=== PATIENT | female | born 1935 | race American Indian/Alaskan Native ===

== ENCOUNTER 2017-12-17 20:38 | Inpatient (IN) | payer MEDICARE ==
--- NOTE | 2017-12-17 20:50 | C.PDOC ---
History Of Present Illness Patient sent in from long term for abnormal labs. Unable to obtain Hx due to dementia. Time Seen by Provider: 12/17/17 20:50 Chief Complaint (Nursing): Abnormal Labs History Per: Other (long term) History/Exam Limitations: clinical condition Onset/Duration Of Symptoms: Hrs Current Symptoms Are (Timing): Still Present Severity: Moderate Pain Scale Rating Of: 4 Reports Recently: Seen In ED, Treated By A Physician, Hospitalized Recent travel outside of the [place]: No Additional History Per: [facility] Past Medical History Reviewed: Historical Data, Nursing Documentation, Vital Signs Vital Signs: Last Vital Signs Temp Pulse 104 H 12/17/17 22:28 Resp 18 12/17/17 22:28 BP 94/55 L 12/17/17 22:28 Pulse Ox 100 12/17/17 22:31 - Medical History PMH: Alzheimer's Disease, HTN, Hyperlipidemia Surgical History: No Surg Hx Family History: States: No Known Family Hx - Social History Hx Alcohol Use: No Hx Substance Use: No Review Of Systems Review Of Systems: ROS cannot be obtained secondary to pt's inabilty to answer questions. Physical Exam - Physical Exam Appears: Non-toxic Skin: Warm, Dry Head: Normacephalic Eye(s): bilateral: Normal Inspection Oral Mucosa: Dry Lips: Other (dry) Neck: Trachea Midline, Supple Chest: Symmetrical, No Tenderness Cardiovascular: Rhythm Regular Respiratory: No Rales, No Rhonchi, No Wheezing Gastrointestinal/Abdominal: Bowel Sounds (Good), Soft, No Tenderness, No Distention Back: Normal Inspection Extremity: No Tenderness, Other (Slightly contracted but able to straighten at times) Extremity: Bilateral: Atraumatic, Normal Color And Temperature Pulses: Left Dorsalis Pedis: Normal, Right Dorsalis Pedis: Normal Neurological/Psych: Other (Demented) Disoriented To: Place, Time, Situation Gait: Unable To Assess ED Course And Treatment - Laboratory Results Result Diagrams: 12/17/17 21:37 12/17/17 21:37 ECG: Interpreted By Me, Viewed By Me O2 Sat by Pulse Oximetry: 100 (Room air) Pulse Ox Interpretation: Normal - Radiology CXR: Interpreted by Me, Viewed By Me CXR Interpretation: No: Infiltrates, Fracture, Pnemothorax Progress Note: Blood work, EKG, CXR, and urinalysis ordered. IV fluids administered. Right femoral vein venipuncture performed in order to obtain blood. Critical Care Time - Critical Care Note Total Time (in mins): 30 Documented critical care: time excludes all time spent performing seperately billable procedures. Disposition Discussed With : Yusef Levy Comment: acceptd the pt on his service and took over the care at 11PM Doctor Will See Patient In The: Hospital Counseled Patient/Family Regarding: Studies Performed, Diagnosis - Disposition Disposition: HOSPITALIZED Disposition Time: 20:50 Condition: GUARDED Forms: [facility] ([place]ian) - POA Present On Arrival: Poor Glycemic Control - Clinical Impression Clinical Impression: Laboratory test result abnormal, Hyperkalemia, Hypernatremia, Renal failure - Scribe Statement The provider has reviewed the documentation as recorded by the Scribe Jacinto Rutledge All medical record entries made by the Scribe were at my direction and personally dictated by me. I have reviewed the chart and agree that the record accurately reflects my personal performance of the history, physical exam, medical decision making, and the department course for this patient. I have also personally directed, reviewed, and agree with the discharge instructions and disposition. Decision To Admit - Pt Status Changed To: Hospital Disposition Of: Inpatient - Admit Certification Admit to Inpatient:: After my assessment, the patient will require hospitalization for at least two midnights. This is because of the severity of symptoms shown, intensity of services needed, and/or the medical risk in this patient being treated as an outpatient. - InPatient: Physician Admission Certification: I certify that this patient requires 2 or more midnights of care for the following reason:: After my assessment, the patient will require hospitalization for at least two midnights. This is because of the severity of symptoms shown, intensity of services needed, and/or the medical risk in this patient being treated as an outpatient. - . Bed Request Type: Telemetry Admitting Physician: Yusef Levy Patient Diagnosis: Laboratory test result abnormal, Hyperkalemia, Hypernatremia, Renal failure
[2017-12-17 21:44] LABS: MONO # 0.7 K/uL (0.0-0.8); RBC 3.64 Mil/uL (3.80-5.20); RED CELL DISTRIBUTION WIDTH 15.5 % (11.5-14.5)
[2017-12-17 21:51] LABS: BASO % 0.2 % (0.0-2.0); EOS # 0.2 K/uL (0.0-0.7); EOS % 1.5 % (0.0-4.0); LYMPH % 18.1 % (20.0-40.0); MEAN CELL VOLUME 86.9 fL (81.0-99.0); MEAN CORPUSCULAR HEMOGLOBIN 27.4 pg (27.0-31.0); MEAN CORPUSCULAR HGB CONC 31.5 g/dL (33.0-37.0); MEAN PLATELET VOLUME 11.4 fL (7.2-11.7); MONO % 6.1 % (0.0-10.0); NEUT # 8.3 K/uL (1.8-7.0); NEUT % 74.1 % (50.0-75.0); WHITE BLOOD COUNT 11.2 K/uL (4.8-10.8)
[2017-12-17 21:54] LABS: VENOUS BLOOD GAS BASE EXCESS -4.2 mmol/L (0.0-2.0); VENOUS BLOOD GAS PCO2 34 mmHg (40-60); VENOUS BLOOD GAS PO2 35 mm/Hg (30-55); VENOUS BLOOD PH 7.38 (7.32-7.43)
[2017-12-17 21:55] LABS: PROTHROMBIN TIME 11.3 SECONDS (9.7-12.2)
[2017-12-17] MEDS: Sodium Chloride 0.9% 1,000 ML IV SCH (22:00)
[2017-12-17 22:07] LABS: TROPONIN I 0.028 ng/mL (0.00-0.120)
[2017-12-17 22:49] LABS: ALBUMIN 3.5 g/dL (3.5-5.0)
[2017-12-17] MEDS ORDERED: Calcium Gluconate 4.65 MEQ in Dextrose 5% In Water 100 ML IVPB STA (22:53)
[2017-12-17] MEDS ORDERED: Dextrose 50% SYRINGE Inj (50 ml) IV STA (22:54)
[2017-12-17] MEDS ORDERED: (Novolin R) Insulin Human Regular 100 units/ml vial IV ONE (22:54)
[2017-12-17] MEDS ORDERED: Sod Polystyrene Sulf 15 gm/60 ml Susp ONE (23:16)
[2017-12-17] MEDS ORDERED: (Novolin R) Insulin Human Regular 100 units/ml vial ONE (23:17)
[2017-12-17] MEDS ORDERED: Dextrose 50% SYRINGE Inj (50 ml) ONE (23:17)
[2017-12-17] MEDS: Sod Polystyrene Sulf 15 gm/60 ml Susp PO ONE (23:37)
[2017-12-18] MEDS ORDERED: Sod Polystyrene Sulf 15 gm/60 ml Susp PR ONE (00:09)
[2017-12-18] MEDS: Sod Polystyrene Sulf 15 gm/60 ml Susp PO ONE (00:29)
[2017-12-18 02:39] LABS: SQUAMOUS EPITHIAL 1 /hpf (0-5); URINE BILIRUBIN NEGATIVE (NEGATIVE); URINE BLOOD NEGATIVE (NEGATIVE); URINE CLARITY Clear (Clear); URINE COLOR Yellow (YELLOW); URINE GLUCOSE (UA) NORMAL (Normal); URINE LEUKOCYTE ESTERASE NEG Leu/uL (Negative); URINE PROTEIN NEGATIVE (NEGATIVE)
[2017-12-18] MEDS ORDERED: MECLIZINE 12.5 MG PO PRN (02:49)
[2017-12-18] MEDS ORDERED: IBUPROFEN 400 MG PO PRN (02:49)
[2017-12-18] MEDS ORDERED: BISACODYL 10 MG PR PRN (02:49)
[2017-12-18] MEDS ORDERED: TYLENOL 650 MG PO PRN ×2 (02:49)
[2017-12-18] MEDS ORDERED: ATIVAN 1 MG PO PRN (02:49)
[2017-12-18] MEDS ORDERED: TRAMADOL 50 MG PO PRN ×2 (02:49→08:13)
[2017-12-18] MEDS ORDERED: MELATONIN 10 MG PO PRN ×2 (02:49→08:03)
[2017-12-18 04:14] LABS: BASO % 0.4 % (0.0-2.0); EOS # 0.1 K/uL (0.0-0.7); EOS % 0.9 % (0.0-4.0); LYMPH # 1.2 K/uL (1.0-4.3); LYMPH % 12.8 % (20.0-40.0); MEAN CELL VOLUME 88.7 fL (81.0-99.0); MEAN CORPUSCULAR HEMOGLOBIN 27.8 pg (27.0-31.0); MEAN CORPUSCULAR HGB CONC 31.4 g/dL (33.0-37.0); MEAN PLATELET VOLUME 12.3 fL (7.2-11.7); MONO # 0.6 K/uL (0.0-0.8); MONO % 6.4 % (0.0-10.0); NEUT # 7.4 K/uL (1.8-7.0); NEUT % 79.5 % (50.0-75.0); NRBC % 0.1 % (0.0-2.0); RBC 3.6 Mil/uL (3.80-5.20); RED CELL DISTRIBUTION WIDTH 15.4 % (11.5-14.5); WHITE BLOOD COUNT 9.3 K/uL (4.8-10.8)
[2017-12-18 04:40] LABS: ALB/GLOB RATIO 1.1 (1.0-2.1); ALBUMIN 3.4 g/dL (3.5-5.0)
[2017-12-18] MEDS ORDERED: Sodium Chloride 0.9% 1,000 ML IV ONE ×4 (05:37→09:35)
[2017-12-18 06:08] LABS: VENOUS BLOOD GAS BASE EXCESS -8.6 mmol/L (0.0-2.0); VENOUS BLOOD GAS PCO2 26 mmHg (40-60); VENOUS BLOOD GAS PO2 44 mm/Hg (30-55); VENOUS BLOOD PH 7.37 (7.32-7.43)
--- NOTE | 2017-12-18 06:47 | CP.PCM.PN ---
<Jeanie Beltran - Last Filed: 12/18/17 06:42> Subjective - Date & Time of Evaluation Date of Evaluation: 12/18/17 Time of Evaluation: 05:45 - Subjective Subjective: Patient found to be hypotensive. Crockett inserted. External jugular line inserted. NS bolus started. Cortisol was ordered. Zosyn 2.25g IV Q8h started empirically. ICU consulted. Patient accepted and will be transferred to ICU for continued management. Objective - Vital Signs/Intake and Output Vital Signs (last 24 hours): Temp Pulse Resp BP Pulse Ox 96.3 F L 103 H 20 101/44 L 98 12/18/17 06:37 12/18/17 06:33 12/18/17 06:33 12/18/17 06:33 12/18/17 06:33 - Medications Medications: Current Medications Enoxaparin Sodium (Lovenox) 40 mg SC DAILY [facility] Home Med (Ativan) 1 mg PO Q12H PRN PRN Reason: Agitation Home Med (Bisacodyl) 10 mg SD Q3D PRN PRN Reason: Constipation Home Med (Citracal Soft Chew) 2 tab PO BID [facility] Home Med (Culturelle) 1 cap PO DAILY [facility] Home Med (Depakote Dr) 250 mg PO BID [facility] Home Med (Docusate Sodium) 200 mg PO DAILY [facility] Home Med (Famotidine) 40 mg PO DAILY [facility] Home Med (Flonase) 2 puff INH DAILY [facility] Home Med (Mag Glycinate) 250 mg PO BID [facility] Home Med (Meclizine) 12.5 mg PO Q12H PRN PRN Reason: Dizziness Home Med (Melatonin) 10 mg PO HS PRN PRN Reason: Insomnia Home Med (Milk Of Magnesia) 30 ml PO Q2D PRN PRN Reason: Constipation Home Med (Multi-Vitamin Daily) 1 tab PO DAILY [facility] Home Med (Tramadol) 50 mg PO Q8H PRN PRN Reason: Pain, severe (8-10) Home Med (Tylenol) 650 mg PO Q4H PRN PRN Reason: Temperature Home Med (Tylenol) 650 mg PO Q4H PRN PRN Reason: Pain, Mild (1-3) Home Med (Uloric) 40 mg PO DAILY [facility] Sodium Chloride (Sodium Chloride 0.9%) 1,000 mls @ 100 mls/hr IV .Q10H [facility] Last Admin: 12/17/17 22:00 Dose: 100 mls/hr Dextrose (Dextrose 5% In Water 1000 Ml) 1,000 mls @ 100 mls/hr IV .Q10H [facility] Last Admin: 12/18/17 01:45 Dose: 100 mls/hr Cefepime HCl 1 gm/ Dextrose 50 mls @ 100 mls/hr IVPB Q12H [facility] PRN Reason: Protocol Pantoprazole Sodium (Protonix Ec Tab) 40 mg PO DAILY [facility] - Labs Labs: 12/18/17 04:08 12/18/17 04:08 PT 11.3 SECONDS (9.7-12.2) 12/17/17 21:37 INR 1.0 12/17/17 21:37 APTT 27 SECONDS (21-34) 12/17/17 21:37 <Slim Singletary P - Last Filed: 12/18/17 08:24> Objective - Vital Signs/Intake and Output Vital Signs (last 24 hours): Temp Pulse Resp BP Pulse Ox 96.3 F L 103 H 20 101/44 L 95 12/18/17 06:37 12/18/17 06:33 12/18/17 06:33 12/18/17 06:33 12/18/17 07:35 - Medications Medications: Current Medications Acetaminophen (Tylenol 325mg Tab) 650 mg PO Q4H PRN PRN Reason: Temperature Acetaminophen (Tylenol 325mg Tab) 650 mg PO Q4H PRN PRN Reason: Pain, Mild (1-3) Bisacodyl (Dulcolax) 10 mg SD Q3D PRN PRN Reason: Constipation Divalproex Sodium (Depakote Dr) 250 mg PO BID [facility] Docusate Sodium (Colace) 200 mg PO DAILY [facility] Enoxaparin Sodium (Lovenox) 40 mg SC DAILY [facility] Fluticasone Propionate (Flonase) 2 spr BEL DAILY [facility] Home Med (Mag Glycinate) 250 mg PO BID [facility] Home Med (Citracal Soft Chew) 2 tab PO BID [facility] Home Med (Culturelle) 1 cap PO DAILY [facility] Home Med (Famotidine) 40 mg PO DAILY [facility] Home Med (Melatonin) 10 mg PO HS PRN PRN Reason: Insomnia Home Med (Tramadol) 50 mg PO Q8H PRN PRN Reason: Pain, severe (8-10) Home Med (Uloric) 40 mg PO DAILY [facility] Sodium Chloride (Sodium Chloride 0.9%) 1,000 mls @ 100 mls/hr IV .Q10H [facility] Last Admin: 12/17/17 22:00 Dose: 100 mls/hr Dextrose (Dextrose 5% In Water 1000 Ml) 1,000 mls @ 100 mls/hr IV .Q10H [facility] Last Admin: 12/18/17 01:45 Dose: 100 mls/hr Cefepime HCl 1 gm/ Dextrose 50 mls @ 100 mls/hr IVPB Q12H [facility] PRN Reason: Protocol Piperacillin Sod/Tazobactam (Sod 2.25 gm/ Sodium Chloride) 100 mls @ 200 mls/ hr IVPB Q8H [facility] PRN Reason: Protocol Lorazepam (Ativan) 1 mg PO Q12H PRN PRN Reason: Agitation Magnesium Hydroxide (Milk Of Magnesia) 30 ml PO Q2D PRN PRN Reason: Constipation Meclizine HCl (Antivert) 12.5 mg PO Q12H PRN PRN Reason: Dizziness Multivitamins (Hexavitamin) 1 tab PO DAILY [facility] Pantoprazole Sodium (Protonix Ec Tab) 40 mg PO DAILY [facility] - Labs Labs: 12/18/17 04:08 12/18/17 04:08 PT 11.3 SECONDS (9.7-12.2) 12/17/17 21:37 INR 1.0 12/17/17 21:37 APTT 27 SECONDS (21-34) 12/17/17 21:37 Attending/Attestation - Attestation I have personally seen and examined this patient.: Yes I have fully participated in the care of the patient.: Yes I have reviewed all pertinent clinical information, including history, physical exam and plan: Yes Notes (Text): 12/18/17 08:22 Very severely dehydrated in early shock, PREMA, IV 2 boluses started, 18g angiocath inserted in left EJ, single attempt, lactate cortisol levels sent, crockett inserted, no urine out put. ICU consulted patient accepted to ICU. Empiric Zosyn started considering sepsis as dd of this presentation.
[2017-12-18] MEDS ORDERED: Piperacillin/Tazobact 2.25 GM in Sodium Chloride 100 ML IVPB SCH ×2 (07:00→09:30)
[2017-12-18] MEDS ORDERED: Magnesium Hydroxide Susp 30 ml UD PO PRN (08:21)
--- NOTE | 2017-12-18 08:58 | CP.PCM.CON ---
<Lashell Camara - Last Filed: 12/18/17 11:49> History of Present Illness - History of Present Illness History of Present Illness: Critical Care Consult 82 year old female with past medical history of HTN, CKD, Alzheimer's dementia presented to hospital from [facility] for severe dehydration and abnormal lab values. On admission, pt's Na was noted to be 166. Patient was receiving IV fluids but she continued to be hypotensive. ICU consult was requested at this time and pt was transferred to ICU. Currently, pt is lethargic but able to follow simple commands and awakens to verbal and painful stimuli. Pt unable to give history or ROS due to mental status. History is obtained from patient's daughter, Tameka Arriaza. PMHx: stated above Sx: none NKDA Social; former smoker, quite many years ago. Occasional ETOH use. No drug use Review of Systems - Review of Systems Systems not reviewed;Unavailable: Dementia, Altered Mental Status Past Patient History - Past Social History Smoking Status: Former Smoker Chewing Tobacco Use: No Cigar Use: No Alcohol: Occasional Home Situation {Lives}: Fpc - CARDIAC Hx Hypertension: Yes - NEUROLOGICAL Hx Alzheimer's Disease: Yes - MUSCULOSKELETAL/RHEUMATOLOGICAL Hx Falls: No (Unable to obtain information from patient) - PSYCHIATRIC Hx Substance Use: No Meds Allergies/Adverse Reactions: Allergies Allergy/AdvReac Type Severity Reaction Status Date / Time No Known Allergies Allergy Verified 12/17/17 20:52 - Medications Medications: Current Medications Acetaminophen (Tylenol 325mg Tab) 650 mg PO Q4H PRN PRN Reason: Temperature Acetaminophen (Tylenol 325mg Tab) 650 mg PO Q4H PRN PRN Reason: Pain, Mild (1-3) Bisacodyl (Dulcolax) 10 mg AK Q3D PRN PRN Reason: Constipation Divalproex Sodium (Depakote Dr) 250 mg PO BID [facility] Docusate Sodium (Colace) 200 mg PO DAILY [facility] Enoxaparin Sodium (Lovenox) 40 mg SC DAILY [facility] Fluticasone Propionate (Flonase) 2 spr BEL DAILY [facility] Home Med (Mag Glycinate) 250 mg PO BID [facility] Home Med (Citracal Soft Chew) 2 tab PO BID [facility] Home Med (Culturelle) 1 cap PO DAILY [facility] Home Med (Famotidine) 40 mg PO DAILY [facility] Home Med (Melatonin) 10 mg PO HS PRN PRN Reason: Insomnia Home Med (Tramadol) 50 mg PO Q8H PRN PRN Reason: Pain, severe (8-10) Home Med (Uloric) 40 mg PO DAILY [facility] Sodium Chloride (Sodium Chloride 0.9%) 1,000 mls @ 100 mls/hr IV .Q10H [facility] Last Admin: 12/17/17 22:00 Dose: 100 mls/hr Dextrose (Dextrose 5% In Water 1000 Ml) 1,000 mls @ 100 mls/hr IV .Q10H [facility] Last Admin: 12/18/17 01:45 Dose: 100 mls/hr Piperacillin Sod/Tazobactam (Sod 2.25 gm/ Sodium Chloride) 100 mls @ 200 mls/ hr IVPB Q8H [facility] PRN Reason: Protocol Sodium Chloride (Sodium Chloride 0.9%) 1,000 mls @ 1,000 mls/hr IV .Q1H ONE Stop: 12/18/17 09:20 Lorazepam (Ativan) 1 mg PO Q12H PRN PRN Reason: Agitation Magnesium Hydroxide (Milk Of Magnesia) 30 ml PO Q2D PRN PRN Reason: Constipation Meclizine HCl (Antivert) 12.5 mg PO Q12H PRN PRN Reason: Dizziness Multivitamins (Hexavitamin) 1 tab PO DAILY [facility] Pantoprazole Sodium (Protonix Ec Tab) 40 mg PO DAILY [facility] Physical Exam - Constitutional Appears: No Acute Distress - Head Exam Head Exam: ATRAUMATIC, NORMOCEPHALIC - Eye Exam Eye Exam: EOMI - ENT Exam ENT Exam: Mucous Membranes Moist - Respiratory Exam Respiratory Exam: Clear to Auscultation Bilateral, NORMAL BREATHING PATTERN. absent: Accessory Muscle Use, Rales, Rhonchi, Wheezes - Cardiovascular Exam Cardiovascular Exam: REGULAR RHYTHM, +S1, +S2. absent: Diastolic murmur, Systolic Murmur - GI/Abdominal Exam GI & Abdominal Exam: Normal Bowel Sounds, Soft. absent: Distended, Firm, Guarding - Extremities Exam Extremities exam: Negative for: pedal edema, tenderness - Neurological Exam Neurological exam: Altered - Psychiatric Exam Psychiatric exam: Normal Affect, Normal Mood - Skin Skin Exam: Dry, Intact, Normal Color, Warm Results - Vital Signs Recent Vital Signs: Last Vital Signs Temp 96.3 F L 07/11/18 06:37 Pulse 98 H 12/18/17 08:08 Resp 12 12/18/17 08:08 BP 92/41 L 12/18/17 08:08 Pulse Ox 100 12/18/17 08:08 - Labs Result Diagrams: 12/18/17 04:08 12/18/17 04:08 Labs: Laboratory Results - last 24 hr 12/17/17 12/17/17 12/17/17 21:37 21:37 21:37 WBC 11.2 H RBC 3.64 L Hgb 10.0 L Hct 31.7 L MCV 86.9 MCH 27.4 MCHC 31.5 L RDW 15.5 H Plt Count 104 L MPV 11.4 Neut % (Auto) 74.1 Lymph % (Auto) 18.1 L Tillman % (Auto) 6.1 Eos % (Auto) 1.5 Baso % (Auto) 0.2 Neut # (Auto) 8.3 H Lymph # (Auto) 2.0 Tillman # (Auto) 0.7 Eos # (Auto) 0.2 Baso # (Auto) 0.0 Differential Comment PT 11.3 INR 1.0 APTT 27 pO2 VBG pH VBG pCO2 VBG HCO3 VBG Total CO2 VBG O2 Sat (Calc) VBG Base Excess VBG Potassium Glucose Lactate FiO2 Blood Gas Comments Crit Value Called To Crit Value Called By Crit Value Read Back Blood Gas Notified Time Sodium 166 H* Potassium 6.2 H* Chloride 129 H Carbon Dioxide 21 L Anion Gap 22 H BUN 171 H* Creatinine 10.5 H* Est GFR ( Amer) 4 Est GFR (Non-Af Amer) 4 Random Glucose 100 Serum Osmolality Calcium 10.0 Magnesium 5.1 H* Total Bilirubin 0.6 AST 25 ALT 30 Alkaline Phosphatase 84 Troponin I 0.0280 Total Protein 7.0 Albumin 3.5 Globulin 3.5 Albumin/Globulin Ratio 1.0 Lipase 135 Cortisol AM Sample Venous Blood Potassium Urine Color Urine Clarity Urine pH Ur Specific [place] Urine Protein Urine Glucose (UA) Urine Ketones Urine Blood Urine Nitrate Urine Bilirubin Urine Urobilinogen Ur Leukocyte Esterase Urine WBC (Auto) Urine RBC (Auto) Ur Squamous Epith Cells Urine Osmolality 12/17/17 12/18/17 12/18/17 21:45 02:21 02:21 WBC RBC Hgb Hct MCV MCH MCHC RDW Plt Count MPV Neut % (Auto) Lymph % (Auto) Tillman % (Auto) Eos % (Auto) Baso % (Auto) Neut # (Auto) Lymph # (Auto) Tillman # (Auto) Eos # (Auto) Baso # (Auto) Differential Comment PT INR APTT pO2 35 VBG pH 7.38 VBG pCO2 34 L VBG HCO3 20.8 VBG Total CO2 21.1 L VBG O2 Sat (Calc) 76.1 H VBG Base Excess -4.2 L VBG Potassium 6.1 H Glucose 94 Lactate 1.3 FiO2 21.0 Blood Gas Comments Crit Value Called To Dr shay Crit Value Called By [facility] Crit Value Read Back Y Blood Gas Notified Time 2153 Sodium 161.0 H* Potassium Chloride 133.0 H Carbon Dioxide Anion Gap BUN Creatinine Est GFR ( Amer) Est GFR (Non-Af Amer) Random Glucose Serum Osmolality Calcium Magnesium Total Bilirubin AST ALT Alkaline Phosphatase Troponin I Total Protein Albumin Globulin Albumin/Globulin Ratio Lipase Cortisol AM Sample Venous Blood Potassium 6.1 H Urine Color Yellow Urine Clarity Clear Urine pH 5.0 Ur Specific [place] 1.017 Urine Protein Negative Urine Glucose (UA) Normal Urine Ketones Negative Urine Blood Negative Urine Nitrate Negative Urine Bilirubin Negative Urine Urobilinogen 2.0 H Ur Leukocyte Esterase Neg Urine WBC (Auto) 2 Urine RBC (Auto) < 1 Ur Squamous Epith Cells 1 Urine Osmolality 436 12/18/17 12/18/17 12/18/17 04:08 04:08 04:08 WBC 9.3 RBC 3.60 L Hgb 10.0 L Hct 31.9 L MCV 88.7 MCH 27.8 MCHC 31.4 L RDW 15.4 H Plt Count 88 L MPV 12.3 H Neut % (Auto) 79.5 H Lymph % (Auto) 12.8 L Tillman % (Auto) 6.4 Eos % (Auto) 0.9 Baso % (Auto) 0.4 Neut # (Auto) 7.4 H Lymph # (Auto) 1.2 Tillman # (Auto) 0.6 Eos # (Auto) 0.1 Baso # (Auto) 0.0 Differential Comment PT INR APTT pO2 VBG pH VBG pCO2 VBG HCO3 VBG Total CO2 VBG O2 Sat (Calc) VBG Base Excess VBG Potassium Glucose Lactate FiO2 Blood Gas Comments Crit Value Called To Crit Value Called By Crit Value Read Back Blood Gas Notified Time Sodium 166 H* Potassium 5.6 H Chloride 129 H Carbon Dioxide 18 L Anion Gap 24 H BUN 168 H* Creatinine 10.5 H* Est GFR ( Amer) 4 Est GFR (Non-Af Amer) 4 Random Glucose 143 H Serum Osmolality 403 H Calcium 10.0 Magnesium Total Bilirubin 0.6 AST 22 ALT 28 Alkaline Phosphatase 76 Troponin I Total Protein 6.4 Albumin 3.4 L Globulin 3.0 Albumin/Globulin Ratio 1.1 Lipase Cortisol AM Sample Venous Blood Potassium Urine Color Urine Clarity Urine pH Ur Specific [place] Urine Protein Urine Glucose (UA) Urine Ketones Urine Blood Urine Nitrate Urine Bilirubin Urine Urobilinogen Ur Leukocyte Esterase Urine WBC (Auto) Urine RBC (Auto) Ur Squamous Epith Cells Urine Osmolality 12/18/17 12/18/17 05:44 05:55 WBC RBC Hgb Hct MCV MCH MCHC RDW Plt Count MPV Neut % (Auto) Lymph % (Auto) Tillman % (Auto) Eos % (Auto) Baso % (Auto) Neut # (Auto) Lymph # (Auto) Tillman # (Auto) Eos # (Auto) Baso # (Auto) Differential Comment PT INR APTT pO2 44 VBG pH 7.37 VBG pCO2 26 L VBG HCO3 17.7 VBG Total CO2 15.8 L VBG O2 Sat (Calc) 86.6 H VBG Base Excess -8.6 L VBG Potassium 3.9 Glucose 88 Lactate 1.2 FiO2 Blood Gas Comments Sodium levels are high Crit Value Called To [place] process engineering intern Crit Value Called By Danny ann Crit Value Read Back Y Blood Gas Notified Time 607 Sodium 162.0 H* Potassium Chloride 135.0 H Carbon Dioxide Anion Gap BUN Creatinine Est GFR ( Amer) Est GFR (Non-Af Amer) Random Glucose Serum Osmolality Calcium Magnesium Total Bilirubin AST ALT Alkaline Phosphatase Troponin I Total Protein Albumin Globulin Albumin/Globulin Ratio Lipase Cortisol AM Sample 29.1 H Venous Blood Potassium 3.9 Urine Color Urine Clarity Urine pH Ur Specific [place] Urine Protein Urine Glucose (UA) Urine Ketones Urine Blood Urine Nitrate Urine Bilirubin Urine Urobilinogen Ur Leukocyte Esterase Urine WBC (Auto) Urine RBC (Auto) Ur Squamous Epith Cells Urine Osmolality Assessment & Plan - Assessment and Plan (Free Text) Assessment: 82 year old female with past medical history of HTN, CKD, Alzheimer's dementia is admitted for hyponatremia 2/2 severe dehydration Hyponatremia 2/2 severe dehydration - Na is 166. Urine osm 436, serum osm 403 - Pt is consistently hypotensive. - Free water deficit is 6.4L - Pt receive 2 L NS bolus. Will continue NS 100 cc and once BP improves, will switch to 1/2 NS - will repeat CMP q 4 Hyperkalemia - Kayexelate given Failure to thrive - Per daughter, pt refuses to eat and drink in the residential - Will consult palliative care. Daughter is POA and requesting DNR/DNI - Will place NG tube and start feedings with Nephro CKD Stage IV - BUN/Cr: 168/10.5 - elevated BUN likely 2/2 dehydration - Will continue to monitor Hx of HTN - Will hold homd BP meds Alzheimer's Dementia - Palliative care consult requested Gout - Allopurinol 100 mg po qd Porphylaxis - Protonix - Heparin - SCDs Sparkle Correa After discussion with palliative care, family has requested hospice care for pt. - Date & Time Date: 12/18/17 Time: 09:09 <Osmin Correa - Last Filed: 12/18/17 18:16> Meds - Medications Medications: Current Medications Divalproex Sodium (Nikki Monroe) 250 mg PO BID [facility] Last Admin: 12/18/17 17:03 Dose: Not Given Sodium Chloride (Sodium Chloride 0.9%) 1,000 mls @ 100 mls/hr IV .Q10H ONE Stop: 12/18/17 19:34 Last Admin: 12/18/17 10:05 Dose: Not Given Sodium Chloride (Sodium Chloride 0.45%) 1,000 mls @ 125 mls/hr IV .Q8H [facility] Last Admin: 12/18/17 12:47 Dose: 125 mls/hr Results - Vital Signs Recent Vital Signs: Last Vital Signs Temp 97.4 F L 12/18/17 16:00 Pulse 93 H 12/18/17 18:00 Resp 19 12/18/17 15:09 BP 93/40 L 12/18/17 15:09 Pulse Ox 100 12/18/17 16:00 - Labs Result Diagrams: 12/18/17 04:08 12/18/17 12:10 Labs: Laboratory Results - last 24 hr 12/17/17 12/17/17 12/17/17 21:37 21:37 21:37 WBC 11.2 H RBC 3.64 L Hgb 10.0 L Hct 31.7 L MCV 86.9 MCH 27.4 MCHC 31.5 L RDW 15.5 H Plt Count 104 L MPV 11.4 Neut % (Auto) 74.1 Lymph % (Auto) 18.1 L Tillman % (Auto) 6.1 Eos % (Auto) 1.5 Baso % (Auto) 0.2 Neut # (Auto) 8.3 H Lymph # (Auto) 2.0 Tillman # (Auto) 0.7 Eos # (Auto) 0.2 Baso # (Auto) 0.0 Differential Comment PT 11.3 INR 1.0 APTT 27 pO2 VBG pH VBG pCO2 VBG HCO3 VBG Total CO2 VBG O2 Sat (Calc) VBG Base Excess VBG Potassium Glucose Lactate FiO2 Blood Gas Comments Crit Value Called To Crit Value Called By Crit Value Read Back Blood Gas Notified Time Sodium 166 H* Potassium 6.2 H* Chloride 129 H Carbon Dioxide 21 L Anion Gap 22 H BUN 171 H* Creatinine 10.5 H* Est GFR ( Amer) 4 Est GFR (Non-Af Amer) 4 Random Glucose 100 Serum Osmolality Calcium 10.0 Magnesium 5.1 H* Total Bilirubin 0.6 AST 25 ALT 30 Alkaline Phosphatase 84 Troponin I 0.0280 Total Protein 7.0 Albumin 3.5 Globulin 3.5 Albumin/Globulin Ratio 1.0 Lipase 135 Cortisol AM Sample Venous Blood Potassium Urine Color Urine Clarity Urine pH Ur Specific [place] Urine Protein Urine Glucose (UA) Urine Ketones Urine Blood Urine Nitrate Urine Bilirubin Urine Urobilinogen Ur Leukocyte Esterase Urine WBC (Auto) Urine RBC (Auto) Ur Squamous Epith Cells Urine Osmolality 12/17/17 12/18/17 12/18/17 21:45 02:21 02:21 WBC RBC Hgb Hct MCV MCH MCHC RDW Plt Count MPV Neut % (Auto) Lymph % (Auto) Tillman % (Auto) Eos % (Auto) Baso % (Auto) Neut # (Auto) Lymph # (Auto) Tillman # (Auto) Eos # (Auto) Baso # (Auto) Differential Comment PT INR APTT pO2 35 VBG pH 7.38 VBG pCO2 34 L VBG HCO3 20.8 VBG Total CO2 21.1 L VBG O2 Sat (Calc) 76.1 H VBG Base Excess -4.2 L VBG Potassium 6.1 H Glucose 94 Lactate 1.3 FiO2 21.0 Blood Gas Comments Crit Value Called To Dr shay Crit Value Called By [facility] Crit Value Read Back Y Blood Gas Notified Time 2153 Sodium 161.0 H* Potassium Chloride 133.0 H Carbon Dioxide Anion Gap BUN Creatinine Est GFR ( Amer) Est GFR (Non-Af Amer) Random Glucose Serum Osmolality Calcium Magnesium Total Bilirubin AST ALT Alkaline Phosphatase Troponin I Total Protein Albumin Globulin Albumin/Globulin Ratio Lipase Cortisol AM Sample Venous Blood Potassium 6.1 H Urine Color Yellow Urine Clarity Clear Urine pH 5.0 Ur Specific [place] 1.017 Urine Protein Negative Urine Glucose (UA) Normal Urine Ketones Negative Urine Blood Negative Urine Nitrate Negative Urine Bilirubin Negative Urine Urobilinogen 2.0 H Ur Leukocyte Esterase Neg Urine WBC (Auto) 2 Urine RBC (Auto) < 1 Ur Squamous Epith Cells 1 Urine Osmolality 436 12/18/17 12/18/17 12/18/17 04:08 04:08 04:08 WBC 9.3 RBC 3.60 L Hgb 10.0 L Hct 31.9 L MCV 88.7 MCH 27.8 MCHC 31.4 L RDW 15.4 H Plt Count 88 L MPV 12.3 H Neut % (Auto) 79.5 H Lymph % (Auto) 12.8 L Tillman % (Auto) 6.4 Eos % (Auto) 0.9 Baso % (Auto) 0.4 Neut # (Auto) 7.4 H Lymph # (Auto) 1.2 Tillman # (Auto) 0.6 Eos # (Auto) 0.1 Baso # (Auto) 0.0 Differential Comment PT INR APTT pO2 VBG pH VBG pCO2 VBG HCO3 VBG Total CO2 VBG O2 Sat (Calc) VBG Base Excess VBG Potassium Glucose Lactate FiO2 Blood Gas Comments Crit Value Called To Crit Value Called By Crit Value Read Back Blood Gas Notified Time Sodium 166 H* Potassium 5.6 H Chloride 129 H Carbon Dioxide 18 L Anion Gap 24 H BUN 168 H* Creatinine 10.5 H* Est GFR ( Amer) 4 Est GFR (Non-Af Amer) 4 Random Glucose 143 H Serum Osmolality 403 H Calcium 10.0 Magnesium Total Bilirubin 0.6 AST 22 ALT 28 Alkaline Phosphatase 76 Troponin I Total Protein 6.4 Albumin 3.4 L Globulin 3.0 Albumin/Globulin Ratio 1.1 Lipase Cortisol AM Sample Venous Blood Potassium Urine Color Urine Clarity Urine pH Ur Specific [place] Urine Protein Urine Glucose (UA) Urine Ketones Urine Blood Urine Nitrate Urine Bilirubin Urine Urobilinogen Ur Leukocyte Esterase Urine WBC (Auto) Urine RBC (Auto) Ur Squamous Epith Cells Urine Osmolality 12/18/17 12/18/17 12/18/17 05:44 05:55 12:10 WBC RBC Hgb Hct MCV MCH MCHC RDW Plt Count MPV Neut % (Auto) Lymph % (Auto) Tillman % (Auto) Eos % (Auto) Baso % (Auto) Neut # (Auto) Lymph # (Auto) Tillman # (Auto) Eos # (Auto) Baso # (Auto) Differential Comment PT INR APTT pO2 44 VBG pH 7.37 VBG pCO2 26 L VBG HCO3 17.7 VBG Total CO2 15.8 L VBG O2 Sat (Calc) 86.6 H VBG Base Excess -8.6 L VBG Potassium 3.9 Glucose 88 Lactate 1.2 FiO2 Blood Gas Comments Sodium levels are high Crit Value Called To [place] process engineering intern Crit Value Called By Danny ann Crit Value Read Back Y Blood Gas Notified Time 607 Sodium 162.0 H* 163 H* Potassium 5.3 H Chloride 135.0 H 136 H Carbon Dioxide 16 L Anion Gap 17 BUN 145 H* Creatinine 8.2 H* D Est GFR ( Amer) 6 Est GFR (Non-Af Amer) 5 Random Glucose 83 Serum Osmolality Calcium 8.2 L Magnesium Total Bilirubin 0.6 AST 23 ALT 31 Alkaline Phosphatase 62 Troponin I Total Protein 5.2 L Albumin 2.6 L D Globulin 2.6 Albumin/Globulin Ratio 1.0 Lipase Cortisol AM Sample 29.1 H Venous Blood Potassium 3.9 Urine Color Urine Clarity Urine pH Ur Specific [place] Urine Protein Urine Glucose (UA) Urine Ketones Urine Blood Urine Nitrate Urine Bilirubin Urine Urobilinogen Ur Leukocyte Esterase Urine WBC (Auto) Urine RBC (Auto) Ur Squamous Epith Cells Urine Osmolality Attending/Attestation - Attestation I have personally seen and examined this patient.: Yes I have fully participated in the care of the patient.: Yes I have reviewed all pertinent clinical information: Yes Notes (Text): 12/18/17 18:14 Patient seen and examined in the intensive care unit 82-year-old female admitted with hyponatremia, renal failure and severe dehydration Continue fluid resuscitation Patient is DNR/DNI Transfer to floor Continue renal recommendation
[2017-12-18] MEDS ORDERED: FAMOTIDINE 40 MG PO SCH ×2 (10:00)
[2017-12-18] MEDS ORDERED: MAG GLYCINATE PO SCH (10:00)
[2017-12-18] MEDS ORDERED: ZESTORETIC PO SCH (10:00)
[2017-12-18] MEDS ORDERED: Fluticasone Nasal 50 mcg/Spray NAS SCH (10:00)
[2017-12-18] MEDS ORDERED: MELOXICAM 7.5 MG PO SCH (10:00)
[2017-12-18] MEDS ORDERED: Pantoprazole 40 mg EC Tab PO SCH (10:00)
[2017-12-18] MEDS ORDERED: [UNRECOGNIZED DRUG - OTHER] PO SCH ×2 (10:00)
[2017-12-18] MEDS ORDERED: Enoxaparin 40 mg Syringe SC SCH ×2 (10:00)
[2017-12-18] MEDS ORDERED: ULORIC 40 MG PO SCH ×2 (10:00)
[2017-12-18] MEDS ORDERED: Multiple Vitamins Tab PO SCH (10:00)
[2017-12-18] MEDS ORDERED: CULTURELLE PO SCH ×2 (10:00)
[2017-12-18] MEDS: Divalproex 250 mg DR Tab PO SCH ×2 (10:04→17:03)
--- NOTE | 2017-12-18 10:05 | RAD ---
Date of service: 12/17/2017 PROCEDURE: CHEST RADIOGRAPH, 1 VIEW HISTORY: SOB COMPARISON: None available. FINDINGS: LUNGS: Clear. PLEURA: No pneumothorax or pleural fluid seen. CARDIOVASCULAR: No radiographic findings to suggest acute or significant cardiovascular disease. OSSEOUS STRUCTURES: No significant abnormalities. VISUALIZED UPPER ABDOMEN: Normal. OTHER FINDINGS: None. IMPRESSION: No active disease. Concordant results with the preliminary interpretation rendered by the emergency department physician procedure.
[2017-12-18] MEDS: Sodium Chloride 0.9% 1,000 ML IV SCH (11:37)
--- NOTE | 2017-12-18 11:44 | CP.PCM.CON ---
History of Present Illness - History of Present Illness History of Present Illness: Palliative consult requested by Doctor Correa for Code status and goals of care discussion. Patient is a 82 yo [place] with abnormal labs. K 6.2, Na 162, BUN 168, Level Vial Marker 10.5. Hypotensive, Bolus of NaCl given and Varghese cath inserted. Patient's daughter at bed side requesting Code status discussion. PMH: dementia, [facility]. Hx: , lives at home with her daughter Fam. Hx: mother with Dementia Review of Systems - Review of Systems All systems: reviewed and no additional remarkable complaints except Review of Systems: ROS unobtainable from patient due to lethargy. ROS obtained from daughter. Daughter states her mother has been sleeping long hours lately and stopped interacting. Past Patient History - Past Social History Smoking Status: Former Smoker Chewing Tobacco Use: No Cigar Use: No Alcohol: Occasional Home Situation {Lives}: Long-Term - CARDIAC Hx Hypertension: Yes - NEUROLOGICAL Hx Alzheimer's Disease: Yes - MUSCULOSKELETAL/RHEUMATOLOGICAL Hx Falls: No (Unable to obtain information from patient) - PSYCHIATRIC Hx Substance Use: No Meds Allergies/Adverse Reactions: Allergies Allergy/AdvReac Type Severity Reaction Status Date / Time No Known Allergies Allergy Verified 12/17/17 20:52 - Medications Medications: Current Medications Acetaminophen (Tylenol 325mg Tab) 650 mg PO Q4H PRN PRN Reason: Temperature Acetaminophen (Tylenol 325mg Tab) 650 mg PO Q4H PRN PRN Reason: Pain, Mild (1-3) Allopurinol (Zyloprim) 100 mg PO DAILY [facility] Divalproex Sodium (Depakote Dr) 250 mg PO BID [facility] Last Admin: 12/18/17 10:04 Dose: Not Given Heparin Sodium (Porcine) (Heparin) 5,000 units SC Q8 [facility] Sodium Chloride (Sodium Chloride 0.9%) 1,000 mls @ 100 mls/hr IV .Q10H [facility] Last Admin: 12/18/17 11:37 Dose: 100 mls/hr Piperacillin Sod/Tazobactam (Sod 2.25 gm/ Sodium Chloride) 100 mls @ 200 mls/ hr IVPB Q8H [facility] PRN Reason: Protocol Last Admin: 12/18/17 10:30 Dose: 200 mls/hr Sodium Chloride (Sodium Chloride 0.9%) 1,000 mls @ 100 mls/hr IV .Q10H ONE Stop: 12/18/17 19:34 Last Admin: 12/18/17 10:05 Dose: Not Given Lorazepam (Ativan) 1 mg PO Q12H PRN PRN Reason: Agitation Multivitamins (Hexavitamin) 1 tab PO DAILY [facility] Last Admin: 12/18/17 10:04 Dose: Not Given Pantoprazole Sodium (Protonix Inj) 40 mg IVP DAILY [facility] Physical Exam - Constitutional Appears: Chronically Ill - Head Exam Head Exam: ATRAUMATIC, NORMAL INSPECTION, NORMOCEPHALIC - Eye Exam Eye Exam: EOMI, Normal appearance, PERRL Pupil Exam: NORMAL ACCOMODATION, PERRL - ENT Exam ENT Exam: Mucous Membranes Moist, Normal Exam - Neck Exam Neck exam: Positive for: Normal Inspection - Respiratory Exam Respiratory Exam: Decreased Breath Sounds, Rhonchi - Cardiovascular Exam Cardiovascular Exam: Tachycardia - GI/Abdominal Exam GI & Abdominal Exam: Diminished Bowel Sounds, Soft - Rectal Exam Rectal Exam: Deferred - Exam Additional comments: Fole at bed side, urine celia - Extremities Exam Extremities exam: Positive for: normal inspection - Back Exam Back exam: NORMAL INSPECTION - Neurological Exam Neurological exam: Altered Additional comments: lethargic - Psychiatric Exam Psychiatric exam: Flat Affect - Skin Skin Exam: Normal Color Results - Vital Signs Recent Vital Signs: Last Vital Signs Temp 96.3 F L 12/18/17 06:37 Pulse 98 H 12/18/17 08:08 Resp 12 12/18/17 08:08 BP 92/41 L 12/18/17 08:08 Pulse Ox 100 12/18/17 08:08 - Labs Result Diagrams: 12/18/17 04:08 12/18/17 04:08 Labs: Laboratory Results - last 24 hr 12/17/17 12/17/17 12/17/17 21:37 21:37 21:37 WBC 11.2 H RBC 3.64 L Hgb 10.0 L Hct 31.7 L MCV 86.9 MCH 27.4 MCHC 31.5 L RDW 15.5 H Plt Count 104 L MPV 11.4 Neut % (Auto) 74.1 Lymph % (Auto) 18.1 L [place] % (Auto) 6.1 Eos % (Auto) 1.5 Baso % (Auto) 0.2 Neut # (Auto) 8.3 H Lymph # (Auto) 2.0 [place] # (Auto) 0.7 Eos # (Auto) 0.2 Baso # (Auto) 0.0 Differential Comment PT 11.3 INR 1.0 APTT 27 pO2 VBG pH VBG pCO2 VBG HCO3 VBG Total CO2 VBG O2 Sat (Calc) VBG Base Excess VBG Potassium Glucose Lactate FiO2 Blood Gas Comments Crit Value Called To Crit Value Called By Crit Value Read Back Blood Gas Notified Time Sodium 166 H* Potassium 6.2 H* Chloride 129 H Carbon Dioxide 21 L Anion Gap 22 H BUN 171 H* Creatinine 10.5 H* Est GFR ( Amer) 4 Est GFR (Non-Af Amer) 4 Random Glucose 100 Serum Osmolality Calcium 10.0 Magnesium 5.1 H* Total Bilirubin 0.6 AST 25 ALT 30 Alkaline Phosphatase 84 Troponin I 0.0280 Total Protein 7.0 Albumin 3.5 Globulin 3.5 Albumin/Globulin Ratio 1.0 Lipase 135 Cortisol AM Sample Venous Blood Potassium Urine Color Urine Clarity Urine pH Ur Specific [place] Urine Protein Urine Glucose (UA) Urine Ketones Urine Blood Urine Nitrate Urine Bilirubin Urine Urobilinogen Ur Leukocyte Esterase Urine WBC (Auto) Urine RBC (Auto) Ur Squamous Epith Cells Urine Osmolality 12/17/17 12/18/17 12/18/17 21:45 02:21 02:21 WBC RBC Hgb Hct MCV MCH MCHC RDW Plt Count MPV Neut % (Auto) Lymph % (Auto) [place] % (Auto) Eos % (Auto) Baso % (Auto) Neut # (Auto) Lymph # (Auto) [place] # (Auto) Eos # (Auto) Baso # (Auto) Differential Comment PT INR APTT pO2 35 VBG pH 7.38 VBG pCO2 34 L VBG HCO3 20.8 VBG Total CO2 21.1 L VBG O2 Sat (Calc) 76.1 H VBG Base Excess -4.2 L VBG Potassium 6.1 H Glucose 94 Lactate 1.3 FiO2 21.0 Blood Gas Comments Crit Value Called To Dr shay Crit Value Called By Christiano duran Crit Value Read Back Y Blood Gas Notified Time 2153 Sodium 161.0 H* Potassium Chloride 133.0 H Carbon Dioxide Anion Gap BUN Creatinine Est GFR ( Amer) Est GFR (Non-Af Amer) Random Glucose Serum Osmolality Calcium Magnesium Total Bilirubin AST ALT Alkaline Phosphatase Troponin I Total Protein Albumin Globulin Albumin/Globulin Ratio Lipase Cortisol AM Sample Venous Blood Potassium 6.1 H Urine Color Yellow Urine Clarity Clear Urine pH 5.0 Ur Specific [place] 1.017 Urine Protein Negative Urine Glucose (UA) Normal Urine Ketones Negative Urine Blood Negative Urine Nitrate Negative Urine Bilirubin Negative Urine Urobilinogen 2.0 H Ur Leukocyte Esterase Neg Urine WBC (Auto) 2 Urine RBC (Auto) < 1 Ur Squamous Epith Cells 1 Urine Osmolality 436 12/18/17 12/18/17 12/18/17 04:08 04:08 04:08 WBC 9.3 RBC 3.60 L Hgb 10.0 L Hct 31.9 L MCV 88.7 MCH 27.8 MCHC 31.4 L RDW 15.4 H Plt Count 88 L MPV 12.3 H Neut % (Auto) 79.5 H Lymph % (Auto) 12.8 L [place] % (Auto) 6.4 Eos % (Auto) 0.9 Baso % (Auto) 0.4 Neut # (Auto) 7.4 H Lymph # (Auto) 1.2 [place] # (Auto) 0.6 Eos # (Auto) 0.1 Baso # (Auto) 0.0 Differential Comment PT INR APTT pO2 VBG pH VBG pCO2 VBG HCO3 VBG Total CO2 VBG O2 Sat (Calc) VBG Base Excess VBG Potassium Glucose Lactate FiO2 Blood Gas Comments Crit Value Called To Crit Value Called By Crit Value Read Back Blood Gas Notified Time Sodium 166 H* Potassium 5.6 H Chloride 129 H Carbon Dioxide 18 L Anion Gap 24 H BUN 168 H* Creatinine 10.5 H* Est GFR ( Amer) 4 Est GFR (Non-Af Amer) 4 Random Glucose 143 H Serum Osmolality 403 H Calcium 10.0 Magnesium Total Bilirubin 0.6 AST 22 ALT 28 Alkaline Phosphatase 76 Troponin I Total Protein 6.4 Albumin 3.4 L Globulin 3.0 Albumin/Globulin Ratio 1.1 Lipase Cortisol AM Sample Venous Blood Potassium Urine Color Urine Clarity Urine pH Ur Specific [place] Urine Protein Urine Glucose (UA) Urine Ketones Urine Blood Urine Nitrate Urine Bilirubin Urine Urobilinogen Ur Leukocyte Esterase Urine WBC (Auto) Urine RBC (Auto) Ur Squamous Epith Cells Urine Osmolality 12/18/17 12/18/17 05:44 05:55 WBC RBC Hgb Hct MCV MCH MCHC RDW Plt Count MPV Neut % (Auto) Lymph % (Auto) [place] % (Auto) Eos % (Auto) Baso % (Auto) Neut # (Auto) Lymph # (Auto) [place] # (Auto) Eos # (Auto) Baso # (Auto) Differential Comment PT INR APTT pO2 44 VBG pH 7.37 VBG pCO2 26 L VBG HCO3 17.7 VBG Total CO2 15.8 L VBG O2 Sat (Calc) 86.6 H VBG Base Excess -8.6 L VBG Potassium 3.9 Glucose 88 Lactate 1.2 FiO2 Blood Gas Comments Sodium levels are high Crit Value 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 Crit Value Called By Danny ann Crit Value Read Back Y Blood Gas Notified Time 607 Sodium 162.0 H* Potassium Chloride 135.0 H Carbon Dioxide Anion Gap BUN Creatinine Est GFR ( Amer) Est GFR (Non-Af Amer) Random Glucose Serum Osmolality Calcium Magnesium Total Bilirubin AST ALT Alkaline Phosphatase Troponin I Total Protein Albumin Globulin Albumin/Globulin Ratio Lipase Cortisol AM Sample 29.1 H Venous Blood Potassium 3.9 Urine Color Urine Clarity Urine pH Ur Specific [place] Urine Protein Urine Glucose (UA) Urine Ketones Urine Blood Urine Nitrate Urine Bilirubin Urine Urobilinogen Ur Leukocyte Esterase Urine WBC (Auto) Urine RBC (Auto) Ur Squamous Epith Cells Urine Osmolality Assessment & Plan - Assessment and Plan (Free Text) Assessment: Palliative consult Full Code , no Advance Directive to chart, PPS 10% I reviewed medical records, all diagnostic studies, examined patient n the bed. Patient is lethargyc, in bed with eyes closed, aroused to touch, but goes right back to sleep. Skin intact. Breathing regular with diminished breath sounds. No cough. Abdomen soft, active bowel sounds. NPO due to risk of aspiration 2nd to lethargy. Onesimo yang rne. BUN 168, Level Vial Marker 10.5. Patient moves upper and lower extremities, there is no edema. K 56 down from 6.2, platelts 88, Mg 5.1, Na 162. BP 92/41, HR 105, afebrile Meds: NaCl 0.9 % at 100 cc via IV, Zosyn 2.25 GM IV, heparin, protonix Goals of care discussed with patient's daughter Piper. I reviewed patient's clinical condition and elicited daughter's understanding and expectations of care. Daughter stated full awareness of patient's condition and she feels that her mother has been significantly declining lately. Patient has been in and out of hospital many times in the last one year. Daughter feels that her mother is approaching end of her life and wishes she dies naturally. Daughter is a Jehovah witness as well as her mother and believes in God. Daughter also believes that her mother would tell us to allow her natural if she could talk to us. Daughter said that her brother feels the same way. Artificial nutrition discussed. I magaly concerns regarding patient's inability to swallow due to lethargy and offered more information about PEG. Daughter was very specific that she would not want any form of aggressive measures including PEG, CPR, MV assistance, and Hemodyalisis. She would want her mother to be kept comfortable and allowed Natural . Hospice discussed. I offered more information about hospice. Daughter stated understanding and agreed. POLST introduced. DNR/DNI discussed. Daughter chose DNR/DNI wit symptoms management only. I shared this with ICU team on rounds. Impression * Elderly lady approaching end of her life * Lethargy * Hypernatremia * Other severe electrolyte imbalance * At risk for aspiration due to lethargy * Patient unable to discuss her own goals of care due to condition * Patient's daughter advocates for patient * Daughter is requesting symptomatic therapy only and comfort care Suggestion * Supportive care * PO fluids as tolerated only when patient more alert * Promote skin integrity * Hospice evaluation * DNR/DNI * POLST on chart Advance planing time 40 min
--- NOTE | 2017-12-18 12:19 | CP.PCM.CON ---
History of Present Illness - History of Present Illness History of Present Illness: CHART REVIEWED , PT SEEN AND EXAMINED. 82 YO B FEMALE WITH A HX DEMENTIA, HTN, HYPERLIPIDEMIA ?COPD, TRANS FROM NH WITH DEHYDRATION AND HYPOTENSION., IN ER, +PREMA NOTED., WITH HYPERKALEMIA AND HYPOTENSION. NO FURTHER HX AVAILABLE. PT NON VERBAL. Review of Systems - Review of Systems Systems not reviewed;Unavailable: Altered Mental Status All systems: reviewed and no additional remarkable complaints except Past Patient History - Past Social History Smoking Status: Former Smoker Chewing Tobacco Use: No Cigar Use: No Alcohol: Occasional Home Situation {Lives}: [facility] - CARDIAC Hx Hypertension: Yes - NEUROLOGICAL Hx Alzheimer's Disease: Yes - MUSCULOSKELETAL/RHEUMATOLOGICAL Hx Falls: No (Unable to obtain information from patient) - PSYCHIATRIC Hx Substance Use: No Meds Allergies/Adverse Reactions: Allergies Allergy/AdvReac Type Severity Reaction Status Date / Time No Known Allergies Allergy Verified 12/17/17 20:52 - Medications Medications: Current Medications Acetaminophen (Tylenol 325mg Tab) 650 mg PO Q4H PRN PRN Reason: Temperature Acetaminophen (Tylenol 325mg Tab) 650 mg PO Q4H PRN PRN Reason: Pain, Mild (1-3) Allopurinol (Zyloprim) 100 mg PO DAILY [facility] Divalproex Sodium (Depakote Dr) 250 mg PO BID [facility] Last Admin: 12/18/17 10:04 Dose: Not Given Heparin Sodium (Porcine) (Heparin) 5,000 units SC Q8 [facility] Sodium Chloride (Sodium Chloride 0.9%) 1,000 mls @ 100 mls/hr IV .Q10H [facility] Last Admin: 12/18/17 11:37 Dose: 100 mls/hr Piperacillin Sod/Tazobactam (Sod 2.25 gm/ Sodium Chloride) 100 mls @ 200 mls/ hr IVPB Q8H [facility] PRN Reason: Protocol Last Admin: 12/18/17 10:30 Dose: 200 mls/hr Sodium Chloride (Sodium Chloride 0.9%) 1,000 mls @ 100 mls/hr IV .Q10H ONE Stop: 12/18/17 19:34 Last Admin: 12/18/17 10:05 Dose: Not Given Lorazepam (Ativan) 1 mg PO Q12H PRN PRN Reason: Agitation Multivitamins (Hexavitamin) 1 tab PO DAILY [facility] Last Admin: 12/18/17 10:04 Dose: Not Given Pantoprazole Sodium (Protonix Inj) 40 mg IVP DAILY [facility] Physical Exam - Constitutional Appears: No Acute Distress, Chronically Ill - Head Exam Head Exam: ATRAUMATIC, NORMOCEPHALIC - Eye Exam Eye Exam: Normal appearance - ENT Exam ENT Exam: Mucous Membranes Dry - Neck Exam Neck exam: Positive for: Normal Inspection - Respiratory Exam Respiratory Exam: Decreased Breath Sounds. absent: Accessory Muscle Use - Cardiovascular Exam Cardiovascular Exam: RRR, +S1, +S2 - GI/Abdominal Exam GI & Abdominal Exam: Soft - Rectal Exam Rectal Exam: Deferred - Extremities Exam Additional comments: CHRONIC CHANGES BILAT. UE CONTRACTURE - Back Exam Back exam: absent: rash noted - Neurological Exam Additional comments: AROUSABLE NONVERBAL. Results - Vital Signs Recent Vital Signs: Last Vital Signs Temp 96.3 F L 12/18/17 06:37 Pulse 98 H 12/18/17 08:08 Resp 12 12/18/17 08:08 BP 92/41 L 12/18/17 08:08 Pulse Ox 100 12/18/17 08:08 - Labs Result Diagrams: 12/18/17 04:08 12/18/17 04:08 Labs: Laboratory Results - last 24 hr 12/17/17 12/17/17 12/17/17 21:37 21:37 21:37 WBC 11.2 H RBC 3.64 L Hgb 10.0 L Hct 31.7 L MCV 86.9 MCH 27.4 MCHC 31.5 L RDW 15.5 H Plt Count 104 L MPV 11.4 Neut % (Auto) 74.1 Lymph % (Auto) 18.1 L [place] % (Auto) 6.1 Eos % (Auto) 1.5 Baso % (Auto) 0.2 Neut # (Auto) 8.3 H Lymph # (Auto) 2.0 [place] # (Auto) 0.7 Eos # (Auto) 0.2 Baso # (Auto) 0.0 Differential Comment PT 11.3 INR 1.0 APTT 27 pO2 VBG pH VBG pCO2 VBG HCO3 VBG Total CO2 VBG O2 Sat (Calc) VBG Base Excess VBG Potassium Glucose Lactate FiO2 Blood Gas Comments Crit Value Called To Crit Value Called By Crit Value Read Back Blood Gas Notified Time Sodium 166 H* Potassium 6.2 H* Chloride 129 H Carbon Dioxide 21 L Anion Gap 22 H BUN 171 H* Creatinine 10.5 H* Est GFR ( Amer) 4 Est GFR (Non-Af Amer) 4 Random Glucose 100 Serum Osmolality Calcium 10.0 Magnesium 5.1 H* Total Bilirubin 0.6 AST 25 ALT 30 Alkaline Phosphatase 84 Troponin I 0.0280 Total Protein 7.0 Albumin 3.5 Globulin 3.5 Albumin/Globulin Ratio 1.0 Lipase 135 Cortisol AM Sample Venous Blood Potassium Urine Color Urine Clarity Urine pH Ur Specific [place] Urine Protein Urine Glucose (UA) Urine Ketones Urine Blood Urine Nitrate Urine Bilirubin Urine Urobilinogen Ur Leukocyte Esterase Urine WBC (Auto) Urine RBC (Auto) Ur Squamous Epith Cells Urine Osmolality 12/17/17 12/18/17 12/18/17 21:45 02:21 02:21 WBC RBC Hgb Hct MCV MCH MCHC RDW Plt Count MPV Neut % (Auto) Lymph % (Auto) [place] % (Auto) Eos % (Auto) Baso % (Auto) Neut # (Auto) Lymph # (Auto) [place] # (Auto) Eos # (Auto) Baso # (Auto) Differential Comment PT INR APTT pO2 35 VBG pH 7.38 VBG pCO2 34 L VBG HCO3 20.8 VBG Total CO2 21.1 L VBG O2 Sat (Calc) 76.1 H VBG Base Excess -4.2 L VBG Potassium 6.1 H Glucose 94 Lactate 1.3 FiO2 21.0 Blood Gas Comments Crit Value Called To Dr shay Crit Value Called By [facility] Crit Value Read Back Y Blood Gas Notified Time 2154 Sodium 161.0 H* Potassium Chloride 133.0 H Carbon Dioxide Anion Gap BUN Creatinine Est GFR ( Amer) Est GFR (Non-Af Amer) Random Glucose Serum Osmolality Calcium Magnesium Total Bilirubin AST ALT Alkaline Phosphatase Troponin I Total Protein Albumin Globulin Albumin/Globulin Ratio Lipase Cortisol AM Sample Venous Blood Potassium 6.1 H Urine Color Yellow Urine Clarity Clear Urine pH 5.0 Ur Specific [place] 1.017 Urine Protein Negative Urine Glucose (UA) Normal Urine Ketones Negative Urine Blood Negative Urine Nitrate Negative Urine Bilirubin Negative Urine Urobilinogen 2.0 H Ur Leukocyte Esterase Neg Urine WBC (Auto) 2 Urine RBC (Auto) < 1 Ur Squamous Epith Cells 1 Urine Osmolality 436 12/18/17 12/18/17 12/18/17 04:08 04:08 04:08 WBC 9.3 RBC 3.60 L Hgb 10.0 L Hct 31.9 L MCV 88.7 MCH 27.8 MCHC 31.4 L RDW 15.4 H Plt Count 88 L MPV 12.3 H Neut % (Auto) 79.5 H Lymph % (Auto) 12.8 L [place] % (Auto) 6.4 Eos % (Auto) 0.9 Baso % (Auto) 0.4 Neut # (Auto) 7.4 H Lymph # (Auto) 1.2 White # (Auto) 0.6 Eos # (Auto) 0.1 Baso # (Auto) 0.0 Differential Comment PT INR APTT pO2 VBG pH VBG pCO2 VBG HCO3 VBG Total CO2 VBG O2 Sat (Calc) VBG Base Excess VBG Potassium Glucose Lactate FiO2 Blood Gas Comments Crit Value Called To Crit Value Called By Crit Value Read Back Blood Gas Notified Time Sodium 166 H* Potassium 5.6 H Chloride 129 H Carbon Dioxide 18 L Anion Gap 24 H BUN 168 H* Creatinine 10.5 H* Est GFR ( Amer) 4 Est GFR (Non-Af Amer) 4 Random Glucose 143 H Serum Osmolality 403 H Calcium 10.0 Magnesium Total Bilirubin 0.6 AST 22 ALT 28 Alkaline Phosphatase 76 Troponin I Total Protein 6.4 Albumin 3.4 L Globulin 3.0 Albumin/Globulin Ratio 1.1 Lipase Cortisol AM Sample Venous Blood Potassium Urine Color Urine Clarity Urine pH Ur Specific [place] Urine Protein Urine Glucose (UA) Urine Ketones Urine Blood Urine Nitrate Urine Bilirubin Urine Urobilinogen Ur Leukocyte Esterase Urine WBC (Auto) Urine RBC (Auto) Ur Squamous Epith Cells Urine Osmolality 12/18/17 12/18/17 05:44 05:55 WBC RBC Hgb Hct MCV MCH MCHC RDW Plt Count MPV Neut % (Auto) Lymph % (Auto) White % (Auto) Eos % (Auto) Baso % (Auto) Neut # (Auto) Lymph # (Auto) White # (Auto) Eos # (Auto) Baso # (Auto) Differential Comment PT INR APTT pO2 44 VBG pH 7.37 VBG pCO2 26 L VBG HCO3 17.7 VBG Total CO2 15.8 L VBG O2 Sat (Calc) 86.6 H VBG Base Excess -8.6 L VBG Potassium 3.9 Glucose 88 Lactate 1.2 FiO2 Blood Gas Comments Sodium levels are high Crit Value Called To [place] [facility] Crit Value Called By Danny ann Crit Value Read Back Y Blood Gas Notified Time 607 Sodium 162.0 H* Potassium Chloride 135.0 H Carbon Dioxide Anion Gap BUN Creatinine Est GFR ( Amer) Est GFR (Non-Af Amer) Random Glucose Serum Osmolality Calcium Magnesium Total Bilirubin AST ALT Alkaline Phosphatase Troponin I Total Protein Albumin Globulin Albumin/Globulin Ratio Lipase Cortisol AM Sample 29.1 H Venous Blood Potassium 3.9 Urine Color Urine Clarity Urine pH Ur Specific [place] Urine Protein Urine Glucose (UA) Urine Ketones Urine Blood Urine Nitrate Urine Bilirubin Urine Urobilinogen Ur Leukocyte Esterase Urine WBC (Auto) Urine RBC (Auto) Ur Squamous Epith Cells Urine Osmolality Assessment & Plan (1) Acute kidney failure Status: Acute (2) COPD exacerbation Status: Acute (3) Dementia Status: Acute (4) Dehydration Status: Acute (5) Sepsis Status: Acute (6) Hypertension Status: Acute - Assessment and Plan (Free Text) Assessment: 82 YO FEMALE WITH A HX MULT MED PROBS ADM WITH SEVERE PREMA, HYPOTENSION., SEPSIS AND DEHYDRATION., POSS ASP. PULM TOILET, NEB BD, MONITOR O2 SAT. CONT EMPIRIC IV AB., IVF TOLERATED., FOR RENAL EVAL. CXR REVIEWED. DNR/ DNI STATUS NOTED. MYRNA DICKENS.., DISCUSSED WITH STAFF AT LENGTH AND DR ARENAS
--- NOTE | 2017-12-18 12:23 | CP.PCM.CON ---
History of Present Illness - History of Present Illness History of Present Illness: 82 year old female with past medical history of HTN, CKD, Alzheimer's dementia presented to hospital from [facility] for severe dehydration and abnormal lab values. On admission, Na was noted to be 166. Patient was receiving IV fluids but she continued to be hypotensive. ICU consult was requested for hypotension and pt was transferred to ICU. Currently, pt is lethargic but able to follow simple commands and awakens to verbal and painful stimuli. Pt unable to give history or ROS due to mental status. History is obtained from patient's daughter, Tameka Arriaza. On IV saline- boluses and rate now 100 ml qh Na level increased to 166; azotemia advanced PMHx: stated above FH- no known CKD Sx: none NKDA Social; former smoker, quite many years ago. Occasional ETOH use. No drug use Review of Systems - Review of Systems Systems not reviewed;Unavailable: Altered Mental Status Past Patient History - Past Medical History & Family History Past Family History: Reviewed and not pertinent - Past Social History Smoking Status: Former Smoker Chewing Tobacco Use: No Cigar Use: No Alcohol: Occasional Home Situation {Lives}: Skilled Nursing - CARDIAC Hx Hypertension: Yes - NEUROLOGICAL Hx Alzheimer's Disease: Yes - MUSCULOSKELETAL/RHEUMATOLOGICAL Hx Falls: No (Unable to obtain information from patient) - PSYCHIATRIC Hx Substance Use: No Meds Allergies/Adverse Reactions: Allergies Allergy/AdvReac Type Severity Reaction Status Date / Time No Known Allergies Allergy Verified 12/17/17 20:52 - Medications Medications: Current Medications Acetaminophen (Tylenol 325mg Tab) 650 mg PO Q4H PRN PRN Reason: Temperature Acetaminophen (Tylenol 325mg Tab) 650 mg PO Q4H PRN PRN Reason: Pain, Mild (1-3) Allopurinol (Zyloprim) 100 mg PO DAILY [facility] Divalproex Sodium (Depakote Dr) 250 mg PO BID [facility] Last Admin: 12/18/17 10:04 Dose: Not Given Heparin Sodium (Porcine) (Heparin) 5,000 units SC Q8 [facility] Sodium Chloride (Sodium Chloride 0.9%) 1,000 mls @ 100 mls/hr IV .Q10H [facility] Last Admin: 12/18/17 11:37 Dose: 100 mls/hr Piperacillin Sod/Tazobactam (Sod 2.25 gm/ Sodium Chloride) 100 mls @ 200 mls/ hr IVPB Q8H [facility] PRN Reason: Protocol Last Admin: 12/18/17 10:30 Dose: 200 mls/hr Sodium Chloride (Sodium Chloride 0.9%) 1,000 mls @ 100 mls/hr IV .Q10H ONE Stop: 12/18/17 19:34 Last Admin: 12/18/17 10:05 Dose: Not Given Lorazepam (Ativan) 1 mg PO Q12H PRN PRN Reason: Agitation Multivitamins (Hexavitamin) 1 tab PO DAILY [facility] Last Admin: 12/18/17 10:04 Dose: Not Given Pantoprazole Sodium (Protonix Inj) 40 mg IVP DAILY [facility] Physical Exam - Constitutional Appears: In Acute Distress, Chronically Ill - Head Exam Head Exam: ATRAUMATIC, NORMAL INSPECTION - Neck Exam Neck exam: Positive for: Normal Inspection. Negative for: Tenderness - Respiratory Exam Respiratory Exam: Clear to Auscultation Bilateral, NORMAL BREATHING PATTERN - Cardiovascular Exam Cardiovascular Exam: REGULAR RHYTHM, +S1 - GI/Abdominal Exam GI & Abdominal Exam: Soft. absent: Tenderness - Extremities Exam Extremities exam: Positive for: normal inspection. Negative for: tenderness - Neurological Exam Neurological exam: Altered - Skin Skin Exam: Dry, Warm Results - Vital Signs Recent Vital Signs: Last Vital Signs Temp 96.3 F L 12/18/17 06:37 Pulse 98 H 12/18/17 08:08 Resp 12 12/18/17 08:08 BP 92/41 L 12/18/17 08:08 Pulse Ox 100 12/18/17 08:08 - Labs Result Diagrams: 12/18/17 04:08 12/18/17 04:08 Labs: Laboratory Results - last 24 hr 12/17/17 12/17/17 12/17/17 21:37 21:37 21:37 WBC 11.2 H RBC 3.64 L Hgb 10.0 L Hct 31.7 L MCV 86.9 MCH 27.4 MCHC 31.5 L RDW 15.5 H Plt Count 104 L MPV 11.4 Neut % (Auto) 74.1 Lymph % (Auto) 18.1 L Luce % (Auto) 6.1 Eos % (Auto) 1.5 Baso % (Auto) 0.2 Neut # (Auto) 8.3 H Lymph # (Auto) 2.0 Luce # (Auto) 0.7 Eos # (Auto) 0.2 Baso # (Auto) 0.0 Differential Comment PT 11.3 INR 1.0 APTT 27 pO2 VBG pH VBG pCO2 VBG HCO3 VBG Total CO2 VBG O2 Sat (Calc) VBG Base Excess VBG Potassium Glucose Lactate FiO2 Blood Gas Comments Crit Value Called To Crit Value Called By Crit Value Read Back Blood Gas Notified Time Sodium 166 H* Potassium 6.2 H* Chloride 129 H Carbon Dioxide 21 L Anion Gap 22 H BUN 171 H* Creatinine 10.5 H* Est GFR ( Amer) 4 Est GFR (Non-Af Amer) 4 Random Glucose 100 Serum Osmolality Calcium 10.0 Magnesium 5.1 H* Total Bilirubin 0.6 AST 25 ALT 30 Alkaline Phosphatase 84 Troponin I 0.0280 Total Protein 7.0 Albumin 3.5 Globulin 3.5 Albumin/Globulin Ratio 1.0 Lipase 135 Cortisol AM Sample Venous Blood Potassium Urine Color Urine Clarity Urine pH Ur Specific [place] Urine Protein Urine Glucose (UA) Urine Ketones Urine Blood Urine Nitrate Urine Bilirubin Urine Urobilinogen Ur Leukocyte Esterase Urine WBC (Auto) Urine RBC (Auto) Ur Squamous Epith Cells Urine Osmolality 12/17/17 12/18/17 12/18/17 21:45 02:21 02:21 WBC RBC Hgb Hct MCV MCH MCHC RDW Plt Count MPV Neut % (Auto) Lymph % (Auto) Luce % (Auto) Eos % (Auto) Baso % (Auto) Neut # (Auto) Lymph # (Auto) Luce # (Auto) Eos # (Auto) Baso # (Auto) Differential Comment PT INR APTT pO2 35 VBG pH 7.38 VBG pCO2 34 L VBG HCO3 20.8 VBG Total CO2 21.1 L VBG O2 Sat (Calc) 76.1 H VBG Base Excess -4.2 L VBG Potassium 6.1 H Glucose 94 Lactate 1.3 FiO2 21.0 Blood Gas Comments Crit Value Called To Dr shay Crit Value Called By Christiano duran Crit Value Read Back Y Blood Gas Notified Time 2153 Sodium 161.0 H* Potassium Chloride 133.0 H Carbon Dioxide Anion Gap BUN Creatinine Est GFR ( Amer) Est GFR (Non-Af Amer) Random Glucose Serum Osmolality Calcium Magnesium Total Bilirubin AST ALT Alkaline Phosphatase Troponin I Total Protein Albumin Globulin Albumin/Globulin Ratio Lipase Cortisol AM Sample Venous Blood Potassium 6.1 H Urine Color Yellow Urine Clarity Clear Urine pH 5.0 Ur Specific [place] 1.017 Urine Protein Negative Urine Glucose (UA) Normal Urine Ketones Negative Urine Blood Negative Urine Nitrate Negative Urine Bilirubin Negative Urine Urobilinogen 2.0 H Ur Leukocyte Esterase Neg Urine WBC (Auto) 2 Urine RBC (Auto) < 1 Ur Squamous Epith Cells 1 Urine Osmolality 436 12/18/17 12/18/17 12/18/17 04:08 04:08 04:08 WBC 9.3 RBC 3.60 L Hgb 10.0 L Hct 31.9 L MCV 88.7 MCH 27.8 MCHC 31.4 L RDW 15.4 H Plt Count 88 L MPV 12.3 H Neut % (Auto) 79.5 H Lymph % (Auto) 12.8 L Luce % (Auto) 6.4 Eos % (Auto) 0.9 Baso % (Auto) 0.4 Neut # (Auto) 7.4 H Lymph # (Auto) 1.2 Luce # (Auto) 0.6 Eos # (Auto) 0.1 Baso # (Auto) 0.0 Differential Comment PT INR APTT pO2 VBG pH VBG pCO2 VBG HCO3 VBG Total CO2 VBG O2 Sat (Calc) VBG Base Excess VBG Potassium Glucose Lactate FiO2 Blood Gas Comments Crit Value Called To Crit Value Called By Crit Value Read Back Blood Gas Notified Time Sodium 166 H* Potassium 5.6 H Chloride 129 H Carbon Dioxide 18 L Anion Gap 24 H BUN 168 H* Creatinine 10.5 H* Est GFR ( Amer) 4 Est GFR (Non-Af Amer) 4 Random Glucose 143 H Serum Osmolality 403 H Calcium 10.0 Magnesium Total Bilirubin 0.6 AST 22 ALT 28 Alkaline Phosphatase 76 Troponin I Total Protein 6.4 Albumin 3.4 L Globulin 3.0 Albumin/Globulin Ratio 1.1 Lipase Cortisol AM Sample Venous Blood Potassium Urine Color Urine Clarity Urine pH Ur Specific [place] Urine Protein Urine Glucose (UA) Urine Ketones Urine Blood Urine Nitrate Urine Bilirubin Urine Urobilinogen Ur Leukocyte Esterase Urine WBC (Auto) Urine RBC (Auto) Ur Squamous Epith Cells Urine Osmolality 12/18/17 12/18/17 05:44 05:55 WBC RBC Hgb Hct MCV MCH MCHC RDW Plt Count MPV Neut % (Auto) Lymph % (Auto) Luce % (Auto) Eos % (Auto) Baso % (Auto) Neut # (Auto) Lymph # (Auto) Luce # (Auto) Eos # (Auto) Baso # (Auto) Differential Comment PT INR APTT pO2 44 VBG pH 7.37 VBG pCO2 26 L VBG HCO3 17.7 VBG Total CO2 15.8 L VBG O2 Sat (Calc) 86.6 H VBG Base Excess -8.6 L VBG Potassium 3.9 Glucose 88 Lactate 1.2 FiO2 Blood Gas Comments Sodium levels are high Crit Value Called To Enid smith er Crit Value Called By Danny ann Crit Value Read Back Y Blood Gas Notified Time 607 Sodium 162.0 H* Potassium Chloride 135.0 H Carbon Dioxide Anion Gap BUN Creatinine Est GFR ( Amer) Est GFR (Non-Af Amer) Random Glucose Serum Osmolality Calcium Magnesium Total Bilirubin AST ALT Alkaline Phosphatase Troponin I Total Protein Albumin Globulin Albumin/Globulin Ratio Lipase Cortisol AM Sample 29.1 H Venous Blood Potassium 3.9 Urine Color Urine Clarity Urine pH Ur Specific [place] Urine Protein Urine Glucose (UA) Urine Ketones Urine Blood Urine Nitrate Urine Bilirubin Urine Urobilinogen Ur Leukocyte Esterase Urine WBC (Auto) Urine RBC (Auto) Ur Squamous Epith Cells Urine Osmolality Assessment & Plan - Assessment and Plan (Free Text) Assessment: Severe dehydration advanced azotemia- partly pre-renal hypernatremia from volume depletion h/o dementia, HTN Plan: IV fluids- change to 1/2NS due to hypernatremia urine lytes serial chemistries
[2017-12-18] MEDS: Sodium Chloride 0.45% 1,000 ML IV SCH ×2 (12:47→22:33)
--- NOTE | 2017-12-18 12:52 | CP.PCM.CON ---
History of Present Illness - History of Present Illness History of Present Illness: 82 year old female with past medical history of HTN, CKD, Alzheimer's dementia presented to hospital from [facility] for severe dehydration and abnormal lab values. On admission, Na was noted to be 166. Patient was receiving IV fluids but she continued to be hypotensive and pt was transferred to ICU. Currently, pt is lethargic but able to follow simple commands and awakens to verbal and painful stimuli. Pt unable to give history or ROS due to mental status. History is obtained from patient's daughter, On IV saline- boluses and rate now 100 ml qh Na level increased to 166; azotemia advanced IV ANTIBIOTICS ORDERED PMHx: stated above FH- no known CKD Sx: none NKDA Social; former smoker, quite many years ago. Occasional ETOH use. No drug use Review of Systems - Review of Systems Systems not reviewed;Unavailable: Altered Mental Status All systems: reviewed and no additional remarkable complaints except - Constitutional Constitutional: As Per HPI - EENT Eyes: absent: As Per HPI, Blind Spots, Blurred Vision, Change in Vision, Decreased Night Vision, Diplopia, Discharge, Dry Eye, Exophthalmos, Floaters, Irritation, Itchy Eyes, Loss of Peripheral Vision, Pain, Photophobia, Requires Corrective Lenses, Sees Flashes, Spots in Vision, Tunnel Vision, Other Visual Disturbances, Loss of Vision, Other Ears: absent: As Per HPI, Decreased Hearing, Ear Discharge, Ear Pain, Tinnitus, Abnormal Hearing, Disequilibrium, Dizziness, Other Nose/Mouth/Throat: absent: As Per HPI, Epistaxis, Nasal Congestion, Nasal Discharge, Nasal Obstruction, Nasal Trauma, Nose Pain, Post Nasal Drip, Sinus Pain, Sinus Pressure, Bleeding Gums, Change in Voice, Dental Pain, Dry Mouth, Dysphagia, Halitosis, Hoarsness, Lip Swelling, Mouth Lesions, Mouth Pain, Odynophagia, Sore Throat, Throat Swelling, Tongue Swelling, Facial Pain, Neck Pain, Neck Mass, Other - Breasts Breasts: absent: As Per HPI, Change in Shape, Mass, Pain, Nipple Discharge, Nipple Inversion, Skin Changes, Swelling, Other - Cardiovascular Cardiovascular: absent: As Per HPI, Acrocyanosis, Chest Pain, Chest Pain at Rest , Chest Pain with Activity, Claudication, Diaphoresis, Dyspnea, Dyspnea on Exertion, Edema, Irregular Heart Rhythm, Pain Radiating to Arm/Neck/Jaw, Leg Edema, Leg Ulcers, Lightheadedness, Orthopnea, Palpitations, Paroxysmal Nocturnal Dyspnea, Pedal Edema, Radiating Pain, Rapid Heart Rate, Slow Heart Rate, Syncope, Other - Respiratory Respiratory: absent: As Per HPI, Cough, Dyspnea, Hemoptysis, Dyspnea on Exertion , Wheezing, Snoring, Stridor, Pain on Inspiration, Chest Congestion, Excessive Mucous Production, Change in Mucous Color, Pain with Coughing, Other - Gastrointestinal Gastrointestinal: absent: As Per HPI, Abdominal Pain, Belching, Bloating, Change in Bowel Habits, Change in Stool Character, Coffee Ground Emesis, Constipation, Cramping, Diarrhea, Dyspepsia, Dysphagia, Early Satiety, Excessive Flatus, Fecal Incontinence, Heartburn, Hematemesis, Hematochezia, Loose Stools, Melena, Nausea, Odynophagia, Temesmus, Vomiting, Other - Genitourinary Genitourinary: absent: As Per HPI, Change in Urinary Stream, Difficulty Urinating, Dysuria, Flank Pain, Hematuria, Pyuria, Nocturia, Urinary Incontinence, Urinary Frequency, Urinary Hesitance, Urinary Urgency, Voiding Freq/Small Amts, Freq UTI, Hx Renal/Bladder Calculi, Hx /Renal Surgery, Bladder Distension, Other - Reproductive: Female Reproductive:Female: absent: As Per HPI, Amenorrhea, Amenorrhea/ Control, Currently Menstual, Cycle <21 Days, Cycle >35 Days, Cycle Variable, Menses 1-7 Days, Menses >/= 8 Days, Menses Variable, Cycle > 4 Weeks Between, No Menses for 6 Months, Heavy Menses, Light Menses, Normal Menses, Spotting Between Cycles , S/P Hysterectomy, Menopausal, Post Menopausal, Premenarche, Abnormal Vaginal Bleeding, Dysmenorrhea, Dyspareunia, Genital Lesions, Genital Pruritis, Pelvic Pain, Prolapse Symptoms, Sexual Dysfunction, Vaginal Discharge, Vaginal Dryness , Vaginal Odor, Vaginal Pruritis, Other - Menstruation Menstruation: absent: As Per HPI, Amenorrhea, Amenorrhea/ Control, Currently Menstual, Cycle <21 Days, Cycle >35 Days, Cycle Variable, Menses 1-7 Days, Menses >/= 8 Days, Menses Variable, Cycle > 4 Weeks Between, No Menses for 6 Months, Heavy Menses, Light Menses, Normal Menses, Spotting Between Cycles , S/P Hysterectomy, Menopausal, Post Menopausal, Premenarche, Abnormal Vaginal Bleeding, Dysmenorrhea, Other - Musculoskeletal Musculoskeletal: absent: As Per HPI, Abnormal Gait, Arthralgias, Atrophy, Back Pain, Deformity, Joint Swelling, Limited Range of Motion, Loss of Height, Muscle Cramps, Muscle Weakness, Myalgias, Neck Pain, Numbness, Radiating Pain into Limb, Stiffness, Tingling, Other - Integumentary Integumentary: absent: As Per HPI, Acne, Alopecia, Bleeding Lesions, Change in Hair, Change in Nails, Change in Pigmentation, Changing Lesions, Dry Skin, Erythema, Furuncle, Hirsutism, Lesions, New Lesions, Non-Healing Lesions, Photosensitivity, Pruritus, Rash, Skin Pain, Skin Ulcer, Sores, Striae, Swelling , Unusual Bruising, Wounds, Jaundice, Other - Neurological Neurological: absent: As Per HPI, Abnormal Gait, Abnormal Hearing, Abnormal Movements, Abnormal Speech, Behavioral Changes, Burning Sensations, Confusion, Convulsions, Disequilibrium, Dizziness, Numbness, Focal Weakness, Frequent Falls , Headaches, Lack of Coordination, Loss of Vision, Memory Loss, Paresthesias, Radicular Pain, Restless Legs, Sensory Deficit, Syncope, Tingling, Tremor, Vertigo, Weakness, Other Visual Disturbances, Other - Psychiatric Psychiatric: absent: As Per HPI, Abnormal Sleep Pattern, Anhedonia, Anxiety, Auditory Hallucinations, Behavioral Changes, Change in Appetite, Change in Libido, Confusion, Depression, Difficulty Concentrating, Hallucinations, Homicidal Ideation, Hopelessness, Irritability, Memory Loss, Mood Swings, Panic Attacks, Paranoia, Suicidal Ideation, Visual Hallucinations, Tactile Hallucinations, Other - Endocrine Endocrine: absent: As Per HPI, Change in Body Appearance, Change in Libido, Cold Intolorance, Deepening of Voice, Excessive Sweating, Fatigue, Flushing, Heat Intolorance, Increase in Ring/Shoe/Hat Size, Palpitations, Polydipsia, Polyphagia, Polyuria, Other - Hematologic/Lymphatic Hematologic: absent: As Per HPI, Easy Bleeding, Easy Bruising, Lymphadenopathy, Other Past Patient History - Past Medical History & Family History Past Family History: Reviewed and not pertinent - Past Social History Smoking Status: Former Smoker Chewing Tobacco Use: No Cigar Use: No Alcohol: Occasional Home Situation {Lives}: [facility] - CARDIAC Hx Hypertension: Yes - NEUROLOGICAL Hx Alzheimer's Disease: Yes - MUSCULOSKELETAL/RHEUMATOLOGICAL Hx Falls: No (Unable to obtain information from patient) - PSYCHIATRIC Hx Substance Use: No Meds Allergies/Adverse Reactions: Allergies Allergy/AdvReac Type Severity Reaction Status Date / Time No Known Allergies Allergy Verified 12/17/17 20:52 - Medications Medications: Current Medications Acetaminophen (Tylenol 325mg Tab) 650 mg PO Q4H PRN PRN Reason: Temperature Acetaminophen (Tylenol 325mg Tab) 650 mg PO Q4H PRN PRN Reason: Pain, Mild (1-3) Allopurinol (Zyloprim) 100 mg PO DAILY [facility] Last Admin: 12/18/17 12:38 Dose: Not Given Divalproex Sodium (Depakote Dr) 250 mg PO BID [facility] Last Admin: 12/18/17 10:04 Dose: Not Given Heparin Sodium (Porcine) (Heparin) 5,000 units SC Q8 [facility] Piperacillin Sod/Tazobactam (Sod 2.25 gm/ Sodium Chloride) 100 mls @ 200 mls/ hr IVPB Q8H [facility] PRN Reason: Protocol Last Admin: 12/18/17 10:30 Dose: 200 mls/hr Sodium Chloride (Sodium Chloride 0.9%) 1,000 mls @ 100 mls/hr IV .Q10H ONE Stop: 12/18/17 19:34 Last Admin: 12/18/17 10:05 Dose: Not Given Sodium Chloride (Sodium Chloride 0.45%) 1,000 mls @ 125 mls/hr IV .Q8H [facility] Last Admin: 12/18/17 12:47 Dose: 125 mls/hr Lorazepam (Ativan) 1 mg PO Q12H PRN PRN Reason: Agitation Multivitamins (Hexavitamin) 1 tab PO DAILY [facility] Last Admin: 12/18/17 10:04 Dose: Not Given Pantoprazole Sodium (Protonix Inj) 40 mg IVP DAILY [facility] Physical Exam - Constitutional Appears: No Acute Distress, Confused, Cachectic, Chronically Ill - Head Exam Head Exam: ATRAUMATIC, NORMAL INSPECTION, NORMOCEPHALIC - Eye Exam Eye Exam: EOMI, PERRL. absent: Scleral icterus - ENT Exam ENT Exam: Mucous Membranes Dry, Normal External Ear Exam, Normal Oropharynx - Neck Exam Neck exam: Negative for: Lymphadenopathy - Respiratory Exam Respiratory Exam: Decreased Breath Sounds, Prolonged Expiratory Phase, Rhonchi - Cardiovascular Exam Cardiovascular Exam: REGULAR RHYTHM, +S1, +S2 - GI/Abdominal Exam GI & Abdominal Exam: Diminished Bowel Sounds, Distended, Hypoactive Bowel Sounds , Soft. absent: Organomegaly, Tenderness - Rectal Exam Rectal Exam: Deferred - Exam Exam: NORMAL INSPECTION - Extremities Exam Extremities exam: Positive for: pedal edema, pedal pulses present. Negative for : calf tenderness, tenderness - Back Exam Back exam: absent: CVA tenderness (L), CVA tenderness (R), paraspinal tenderness - Neurological Exam Neurological exam: Altered, CN II-XII Intact - Psychiatric Exam Psychiatric exam: Depressed - Skin Skin Exam: Dry Results - Vital Signs Recent Vital Signs: Last Vital Signs Temp 96.3 F L 12/18/17 06:37 Pulse 98 H 12/18/17 08:08 Resp 12 12/18/17 08:08 BP 92/41 L 12/18/17 08:08 Pulse Ox 100 12/18/17 08:08 - Labs Result Diagrams: 12/18/17 04:08 12/18/17 12:10 Labs: Laboratory Results - last 24 hr 12/17/17 12/17/17 12/17/17 21:37 21:37 21:37 WBC 11.2 H RBC 3.64 L Hgb 10.0 L Hct 31.7 L MCV 86.9 MCH 27.4 MCHC 31.5 L RDW 15.5 H Plt Count 104 L MPV 11.4 Neut % (Auto) 74.1 Lymph % (Auto) 18.1 L [place] % (Auto) 6.1 Eos % (Auto) 1.5 Baso % (Auto) 0.2 Neut # (Auto) 8.3 H Lymph # (Auto) 2.0 [place] # (Auto) 0.7 Eos # (Auto) 0.2 Baso # (Auto) 0.0 Differential Comment PT 11.3 INR 1.0 APTT 27 pO2 VBG pH VBG pCO2 VBG HCO3 VBG Total CO2 VBG O2 Sat (Calc) VBG Base Excess VBG Potassium Glucose Lactate FiO2 Blood Gas Comments Crit Value Called To Crit Value Called By Crit Value Read Back Blood Gas Notified Time Sodium 166 H* Potassium 6.2 H* Chloride 129 H Carbon Dioxide 21 L Anion Gap 22 H BUN 171 H* Creatinine 10.5 H* Est GFR ( Amer) 4 Est GFR (Non-Af Amer) 4 Random Glucose 100 Serum Osmolality Calcium 10.0 Magnesium 5.1 H* Total Bilirubin 0.6 AST 25 ALT 30 Alkaline Phosphatase 84 Troponin I 0.0280 Total Protein 7.0 Albumin 3.5 Globulin 3.5 Albumin/Globulin Ratio 1.0 Lipase 135 Cortisol AM Sample Venous Blood Potassium Urine Color Urine Clarity Urine pH Ur Specific [place] Urine Protein Urine Glucose (UA) Urine Ketones Urine Blood Urine Nitrate Urine Bilirubin Urine Urobilinogen Ur Leukocyte Esterase Urine WBC (Auto) Urine RBC (Auto) Ur Squamous Epith Cells Urine Osmolality 12/17/17 12/18/17 12/18/17 21:45 02:21 02:21 WBC RBC Hgb Hct MCV MCH MCHC RDW Plt Count MPV Neut % (Auto) Lymph % (Auto) [place] % (Auto) Eos % (Auto) Baso % (Auto) Neut # (Auto) Lymph # (Auto) [place] # (Auto) Eos # (Auto) Baso # (Auto) Differential Comment PT INR APTT pO2 35 VBG pH 7.38 VBG pCO2 34 L VBG HCO3 20.8 VBG Total CO2 21.1 L VBG O2 Sat (Calc) 76.1 H VBG Base Excess -4.2 L VBG Potassium 6.1 H Glucose 94 Lactate 1.3 FiO2 21.0 Blood Gas Comments Crit Value Called To Dr shay Crit Value Called By [facility] Crit Value Read Back Y Blood Gas Notified Time 2154 Sodium 161.0 H* Potassium Chloride 133.0 H Carbon Dioxide Anion Gap BUN Creatinine Est GFR ( Amer) Est GFR (Non-Af Amer) Random Glucose Serum Osmolality Calcium Magnesium Total Bilirubin AST ALT Alkaline Phosphatase Troponin I Total Protein Albumin Globulin Albumin/Globulin Ratio Lipase Cortisol AM Sample Venous Blood Potassium 6.1 H Urine Color Yellow Urine Clarity Clear Urine pH 5.0 Ur Specific [place] 1.017 Urine Protein Negative Urine Glucose (UA) Normal Urine Ketones Negative Urine Blood Negative Urine Nitrate Negative Urine Bilirubin Negative Urine Urobilinogen 2.0 H Ur Leukocyte Esterase Neg Urine WBC (Auto) 2 Urine RBC (Auto) < 1 Ur Squamous Epith Cells 1 Urine Osmolality 436 12/18/17 12/18/17 12/18/17 04:08 04:08 04:08 WBC 9.3 RBC 3.60 L Hgb 10.0 L Hct 31.9 L MCV 88.7 MCH 27.8 MCHC 31.4 L RDW 15.4 H Plt Count 88 L MPV 12.3 H Neut % (Auto) 79.5 H Lymph % (Auto) 12.8 L [place] % (Auto) 6.4 Eos % (Auto) 0.9 Baso % (Auto) 0.4 Neut # (Auto) 7.4 H Lymph # (Auto) 1.2 [place] # (Auto) 0.6 Eos # (Auto) 0.1 Baso # (Auto) 0.0 Differential Comment PT INR APTT pO2 VBG pH VBG pCO2 VBG HCO3 VBG Total CO2 VBG O2 Sat (Calc) VBG Base Excess VBG Potassium Glucose Lactate FiO2 Blood Gas Comments Crit Value Called To Crit Value Called By Crit Value Read Back Blood Gas Notified Time Sodium 166 H* Potassium 5.6 H Chloride 129 H Carbon Dioxide 18 L Anion Gap 24 H BUN 168 H* Creatinine 10.5 H* Est GFR ( Amer) 4 Est GFR (Non-Af Amer) 4 Random Glucose 143 H Serum Osmolality 403 H Calcium 10.0 Magnesium Total Bilirubin 0.6 AST 22 ALT 28 Alkaline Phosphatase 76 Troponin I Total Protein 6.4 Albumin 3.4 L Globulin 3.0 Albumin/Globulin Ratio 1.1 Lipase Cortisol AM Sample Venous Blood Potassium Urine Color Urine Clarity Urine pH Ur Specific [place] Urine Protein Urine Glucose (UA) Urine Ketones Urine Blood Urine Nitrate Urine Bilirubin Urine Urobilinogen Ur Leukocyte Esterase Urine WBC (Auto) Urine RBC (Auto) Ur Squamous Epith Cells Urine Osmolality 12/18/17 12/18/17 05:44 05:55 WBC RBC Hgb Hct MCV MCH MCHC RDW Plt Count MPV Neut % (Auto) Lymph % (Auto) [place] % (Auto) Eos % (Auto) Baso % (Auto) Neut # (Auto) Lymph # (Auto) [place] # (Auto) Eos # (Auto) Baso # (Auto) Differential Comment PT INR APTT pO2 44 VBG pH 7.37 VBG pCO2 26 L VBG HCO3 17.7 VBG Total CO2 15.8 L VBG O2 Sat (Calc) 86.6 H VBG Base Excess -8.6 L VBG Potassium 3.9 Glucose 88 Lactate 1.2 FiO2 Blood Gas Comments Sodium levels are high Crit Value Called To [place] smith er Crit Value Called By Danny ann Crit Value Read Back Y Blood Gas Notified Time 607 Sodium 162.0 H* Potassium Chloride 135.0 H Carbon Dioxide Anion Gap BUN Creatinine Est GFR ( Amer) Est GFR (Non-Af Amer) Random Glucose Serum Osmolality Calcium Magnesium Total Bilirubin AST ALT Alkaline Phosphatase Troponin I Total Protein Albumin Globulin Albumin/Globulin Ratio Lipase Cortisol AM Sample 29.1 H Venous Blood Potassium 3.9 Urine Color Urine Clarity Urine pH Ur Specific [place] Urine Protein Urine Glucose (UA) Urine Ketones Urine Blood Urine Nitrate Urine Bilirubin Urine Urobilinogen Ur Leukocyte Esterase Urine WBC (Auto) Urine RBC (Auto) Ur Squamous Epith Cells Urine Osmolality Assessment & Plan (1) Acute kidney failure Status: Acute (2) COPD exacerbation Status: Acute (3) Dehydration Status: Acute (4) Dementia Status: Acute (5) Hyperkalemia Status: Acute (6) Hypernatremia Status: Acute (7) Hypertension Status: Acute (8) Sepsis Status: Acute - Assessment and Plan (Free Text) Assessment: IV RX IN PROGRESS WILL FOLLOW
[2017-12-18 13:09] LABS: ALBUMIN 2.6 g/dL (3.5-5.0); CALCIUM 8.2 mg/dl (8.6-10.4)
--- NOTE | 2017-12-18 17:47 | CP.PCM.CON ---
History of Present Illness - History of Present Illness History of Present Illness: I was asked to evaluate patient by Dr Shala Levy. Patient is a long term resident who presents with dehydration. She was found to have hyperkalemia. The patient denies chest pain. She is currently comfort care. Review of Systems - Review of Systems Systems not reviewed;Unavailable: Altered Mental Status Past Patient History - Past Medical History & Family History Past Family History: Reviewed and not pertinent - Past Social History Smoking Status: Former Smoker Chewing Tobacco Use: No Cigar Use: No Alcohol: Occasional Home Situation {Lives}: Fdc - CARDIAC Hx Hypertension: Yes - NEUROLOGICAL Hx Alzheimer's Disease: Yes - MUSCULOSKELETAL/RHEUMATOLOGICAL Hx Falls: No (Unable to obtain information from patient) - PSYCHIATRIC Hx Substance Use: No Meds Allergies/Adverse Reactions: Allergies Allergy/AdvReac Type Severity Reaction Status Date / Time No Known Allergies Allergy Verified 12/17/17 20:52 - Medications Medications: Current Medications Divalproex Sodium (Depakote Dr) 250 mg PO BID [facility] Last Admin: 12/18/17 17:03 Dose: Not Given Sodium Chloride (Sodium Chloride 0.9%) 1,000 mls @ 100 mls/hr IV .Q10H ONE Stop: 12/18/17 19:34 Last Admin: 12/18/17 10:05 Dose: Not Given Sodium Chloride (Sodium Chloride 0.45%) 1,000 mls @ 125 mls/hr IV .Q8H [facility] Last Admin: 12/18/17 12:47 Dose: 125 mls/hr Physical Exam - Constitutional Appears: Chronically Ill - Head Exam Head Exam: NORMAL INSPECTION - Eye Exam Eye Exam: Normal appearance - ENT Exam ENT Exam: Mucous Membranes Dry - Respiratory Exam Respiratory Exam: Decreased Breath Sounds - Cardiovascular Exam Cardiovascular Exam: REGULAR RHYTHM - GI/Abdominal Exam GI & Abdominal Exam: Normal Bowel Sounds - Rectal Exam Rectal Exam: Deferred - Extremities Exam Extremities exam: Negative for: pedal edema - Back Exam Back exam: NORMAL INSPECTION - Neurological Exam Neurological exam: Alert, Oriented x3 - Psychiatric Exam Psychiatric exam: Normal Affect - Skin Skin Exam: Normal Color Results - Vital Signs Recent Vital Signs: Last Vital Signs Temp 97.4 F L 12/18/17 16:00 Pulse 93 H 12/18/17 15:09 Resp 19 12/18/17 15:09 BP 93/40 L 12/18/17 15:09 Pulse Ox 100 12/18/17 16:00 - Labs Result Diagrams: 12/18/17 04:08 12/18/17 12:10 Labs: Laboratory Results - last 24 hr 12/17/17 12/17/17 12/17/17 21:37 21:37 21:37 WBC 11.2 H RBC 3.64 L Hgb 10.0 L Hct 31.7 L MCV 86.9 MCH 27.4 MCHC 31.5 L RDW 15.5 H Plt Count 104 L MPV 11.4 Neut % (Auto) 74.1 Lymph % (Auto) 18.1 L [place] % (Auto) 6.1 Eos % (Auto) 1.5 Baso % (Auto) 0.2 Neut # (Auto) 8.3 H Lymph # (Auto) 2.0 [place] # (Auto) 0.7 Eos # (Auto) 0.2 Baso # (Auto) 0.0 Differential Comment PT 11.3 INR 1.0 APTT 27 pO2 VBG pH VBG pCO2 VBG HCO3 VBG Total CO2 VBG O2 Sat (Calc) VBG Base Excess VBG Potassium Glucose Lactate FiO2 Blood Gas Comments Crit Value Called To Crit Value Called By Crit Value Read Back Blood Gas Notified Time Sodium 166 H* Potassium 6.2 H* Chloride 129 H Carbon Dioxide 21 L Anion Gap 22 H BUN 171 H* Creatinine 10.5 H* Est GFR ( Amer) 4 Est GFR (Non-Af Amer) 4 Random Glucose 100 Serum Osmolality Calcium 10.0 Magnesium 5.1 H* Total Bilirubin 0.6 AST 25 ALT 30 Alkaline Phosphatase 84 Troponin I 0.0280 Total Protein 7.0 Albumin 3.5 Globulin 3.5 Albumin/Globulin Ratio 1.0 Lipase 135 Cortisol AM Sample Venous Blood Potassium Urine Color Urine Clarity Urine pH Ur Specific [place] Urine Protein Urine Glucose (UA) Urine Ketones Urine Blood Urine Nitrate Urine Bilirubin Urine Urobilinogen Ur Leukocyte Esterase Urine WBC (Auto) Urine RBC (Auto) Ur Squamous Epith Cells Urine Osmolality 12/17/17 12/18/17 12/18/17 21:45 02:21 02:21 WBC RBC Hgb Hct MCV MCH MCHC RDW Plt Count MPV Neut % (Auto) Lymph % (Auto) [place] % (Auto) Eos % (Auto) Baso % (Auto) Neut # (Auto) Lymph # (Auto) [place] # (Auto) Eos # (Auto) Baso # (Auto) Differential Comment PT INR APTT pO2 35 VBG pH 7.38 VBG pCO2 34 L VBG HCO3 20.8 VBG Total CO2 21.1 L VBG O2 Sat (Calc) 76.1 H VBG Base Excess -4.2 L VBG Potassium 6.1 H Glucose 94 Lactate 1.3 FiO2 21.0 Blood Gas Comments Crit Value Called To Dr shay Crit Value Called By [facility] Crit Value Read Back Y Blood Gas Notified Time 2153 Sodium 161.0 H* Potassium Chloride 133.0 H Carbon Dioxide Anion Gap BUN Creatinine Est GFR ( Amer) Est GFR (Non-Af Amer) Random Glucose Serum Osmolality Calcium Magnesium Total Bilirubin AST ALT Alkaline Phosphatase Troponin I Total Protein Albumin Globulin Albumin/Globulin Ratio Lipase Cortisol AM Sample Venous Blood Potassium 6.1 H Urine Color Yellow Urine Clarity Clear Urine pH 5.0 Ur Specific [place] 1.017 Urine Protein Negative Urine Glucose (UA) Normal Urine Ketones Negative Urine Blood Negative Urine Nitrate Negative Urine Bilirubin Negative Urine Urobilinogen 2.0 H Ur Leukocyte Esterase Neg Urine WBC (Auto) 2 Urine RBC (Auto) < 1 Ur Squamous Epith Cells 1 Urine Osmolality 436 12/18/17 12/18/17 12/18/17 04:08 04:08 04:08 WBC 9.3 RBC 3.60 L Hgb 10.0 L Hct 31.9 L MCV 88.7 MCH 27.8 MCHC 31.4 L RDW 15.4 H Plt Count 88 L MPV 12.3 H Neut % (Auto) 79.5 H Lymph % (Auto) 12.8 L [place] % (Auto) 6.4 Eos % (Auto) 0.9 Baso % (Auto) 0.4 Neut # (Auto) 7.4 H Lymph # (Auto) 1.2 [place] # (Auto) 0.6 Eos # (Auto) 0.1 Baso # (Auto) 0.0 Differential Comment PT INR APTT pO2 VBG pH VBG pCO2 VBG HCO3 VBG Total CO2 VBG O2 Sat (Calc) VBG Base Excess VBG Potassium Glucose Lactate FiO2 Blood Gas Comments Crit Value Called To Crit Value Called By Crit Value Read Back Blood Gas Notified Time Sodium 166 H* Potassium 5.6 H Chloride 129 H Carbon Dioxide 18 L Anion Gap 24 H BUN 168 H* Creatinine 10.5 H* Est GFR ( Amer) 4 Est GFR (Non-Af Amer) 4 Random Glucose 143 H Serum Osmolality 403 H Calcium 10.0 Magnesium Total Bilirubin 0.6 AST 22 ALT 28 Alkaline Phosphatase 76 Troponin I Total Protein 6.4 Albumin 3.4 L Globulin 3.0 Albumin/Globulin Ratio 1.1 Lipase Cortisol AM Sample Venous Blood Potassium Urine Color Urine Clarity Urine pH Ur Specific [place] Urine Protein Urine Glucose (UA) Urine Ketones Urine Blood Urine Nitrate Urine Bilirubin Urine Urobilinogen Ur Leukocyte Esterase Urine WBC (Auto) Urine RBC (Auto) Ur Squamous Epith Cells Urine Osmolality 12/18/17 12/18/17 12/18/17 05:44 05:55 12:10 WBC RBC Hgb Hct MCV MCH MCHC RDW Plt Count MPV Neut % (Auto) Lymph % (Auto) [place] % (Auto) Eos % (Auto) Baso % (Auto) Neut # (Auto) Lymph # (Auto) [place] # (Auto) Eos # (Auto) Baso # (Auto) Differential Comment PT INR APTT pO2 44 VBG pH 7.37 VBG pCO2 26 L VBG HCO3 17.7 VBG Total CO2 15.8 L VBG O2 Sat (Calc) 86.6 H VBG Base Excess -8.6 L VBG Potassium 3.9 Glucose 88 Lactate 1.2 FiO2 Blood Gas Comments Sodium levels are high Crit Value Called To [facility] Crit Value Called By Danny ann Crit Value Read Back Y Blood Gas Notified Time 607 Sodium 162.0 H* 163 H* Potassium 5.3 H Chloride 135.0 H 136 H Carbon Dioxide 16 L Anion Gap 17 BUN 145 H* Creatinine 8.2 H* D Est GFR ( Amer) 6 Est GFR (Non-Af Amer) 5 Random Glucose 83 Serum Osmolality Calcium 8.2 L Magnesium Total Bilirubin 0.6 AST 23 ALT 31 Alkaline Phosphatase 62 Troponin I Total Protein 5.2 L Albumin 2.6 L D Globulin 2.6 Albumin/Globulin Ratio 1.0 Lipase Cortisol AM Sample 29.1 H Venous Blood Potassium 3.9 Urine Color Urine Clarity Urine pH Ur Specific [place] Urine Protein Urine Glucose (UA) Urine Ketones Urine Blood Urine Nitrate Urine Bilirubin Urine Urobilinogen Ur Leukocyte Esterase Urine WBC (Auto) Urine RBC (Auto) Ur Squamous Epith Cells Urine Osmolality - EKG Data EKG Interpreted by: Myself Assessment & Plan (1) Hyperkalemia Assessment and Plan: no evidence of peaked T waves on EKG. will monitor. comfort care Status: Acute (2) Hypertension Assessment and Plan: comfort care Status: Acute
--- NOTE | 2017-12-18 20:55 | CP.PCM.HP ---
Past Patient History - Past Medical History & Family History Past Family History: Reviewed and not pertinent - Past Social History Smoking Status: Former Smoker Chewing Tobacco Use: No Cigar Use: No Alcohol: Occasional Home Situation {Lives}: Fpc - CARDIAC Hx Hypertension: Yes - NEUROLOGICAL Hx Alzheimer's Disease: Yes - MUSCULOSKELETAL/RHEUMATOLOGICAL Hx Falls: No (Unable to obtain information from patient) - PSYCHIATRIC Hx Substance Use: No Meds Allergies/Adverse Reactions: Allergies Allergy/AdvReac Type Severity Reaction Status Date / Time No Known Allergies Allergy Verified 12/17/17 20:52 Physical Exam - Constitutional Appears: Well - Head Exam Head Exam: ATRAUMATIC, NORMAL INSPECTION, NORMOCEPHALIC - Eye Exam Eye Exam: EOMI, Normal appearance, PERRL Pupil Exam: NORMAL ACCOMODATION, PERRL - ENT Exam ENT Exam: Mucous Membranes Moist, Normal Exam - Neck Exam Neck exam: Positive for: Normal Inspection - Respiratory Exam Respiratory Exam: Decreased Breath Sounds - Cardiovascular Exam Cardiovascular Exam: REGULAR RHYTHM, +S1, +S2 - GI/Abdominal Exam GI & Abdominal Exam: Diminished Bowel Sounds, Soft - Rectal Exam Rectal Exam: Deferred Results - Vital Signs Recent Vital Signs: Last Vital Signs Temp 97.4 F L 12/18/17 16:00 Pulse 100 H 12/18/17 18:09 Resp 25 H 12/18/17 18:09 BP 96/40 L 12/18/17 18:09 Pulse Ox 100 12/18/17 18:09 - Labs Result Diagrams: 12/18/17 04:08 12/18/17 12:10 Labs: Laboratory Results - last 24 hr 12/17/17 12/17/17 12/17/17 21:37 21:37 21:37 WBC 11.2 H RBC 3.64 L Hgb 10.0 L Hct 31.7 L MCV 86.9 MCH 27.4 MCHC 31.5 L RDW 15.5 H Plt Count 104 L MPV 11.4 Neut % (Auto) 74.1 Lymph % (Auto) 18.1 L [place] % (Auto) 6.1 Eos % (Auto) 1.5 Baso % (Auto) 0.2 Neut # (Auto) 8.3 H Lymph # (Auto) 2.0 [place] # (Auto) 0.7 Eos # (Auto) 0.2 Baso # (Auto) 0.0 Differential Comment PT 11.3 INR 1.0 APTT 27 pO2 VBG pH VBG pCO2 VBG HCO3 VBG Total CO2 VBG O2 Sat (Calc) VBG Base Excess VBG Potassium Glucose Lactate FiO2 Blood Gas Comments Crit Value Called To Crit Value Called By Crit Value Read Back Blood Gas Notified Time Sodium 166 H* Potassium 6.2 H* Chloride 129 H Carbon Dioxide 21 L Anion Gap 22 H BUN 171 H* Creatinine 10.5 H* Est GFR ( Amer) 4 Est GFR (Non-Af Amer) 4 Random Glucose 100 Serum Osmolality Calcium 10.0 Magnesium 5.1 H* Total Bilirubin 0.6 AST 25 ALT 30 Alkaline Phosphatase 84 Troponin I 0.0280 Total Protein 7.0 Albumin 3.5 Globulin 3.5 Albumin/Globulin Ratio 1.0 Lipase 135 Cortisol AM Sample Venous Blood Potassium Urine Color Urine Clarity Urine pH Ur Specific [place] Urine Protein Urine Glucose (UA) Urine Ketones Urine Blood Urine Nitrate Urine Bilirubin Urine Urobilinogen Ur Leukocyte Esterase Urine WBC (Auto) Urine RBC (Auto) Ur Squamous Epith Cells Urine Osmolality 12/17/17 12/18/17 12/18/17 21:45 02:21 02:21 WBC RBC Hgb Hct MCV MCH MCHC RDW Plt Count MPV Neut % (Auto) Lymph % (Auto) [place] % (Auto) Eos % (Auto) Baso % (Auto) Neut # (Auto) Lymph # (Auto) [place] # (Auto) Eos # (Auto) Baso # (Auto) Differential Comment PT INR APTT pO2 35 VBG pH 7.38 VBG pCO2 34 L VBG HCO3 20.8 VBG Total CO2 21.1 L VBG O2 Sat (Calc) 76.1 H VBG Base Excess -4.2 L VBG Potassium 6.1 H Glucose 94 Lactate 1.3 FiO2 21.0 Blood Gas Comments Crit Value Called To Dr shay Crit Value Called By [facility] Crit Value Read Back Y Blood Gas Notified Time 2154 Sodium 161.0 H* Potassium Chloride 133.0 H Carbon Dioxide Anion Gap BUN Creatinine Est GFR ( Amer) Est GFR (Non-Af Amer) Random Glucose Serum Osmolality Calcium Magnesium Total Bilirubin AST ALT Alkaline Phosphatase Troponin I Total Protein Albumin Globulin Albumin/Globulin Ratio Lipase Cortisol AM Sample Venous Blood Potassium 6.1 H Urine Color Yellow Urine Clarity Clear Urine pH 5.0 Ur Specific [place] 1.017 Urine Protein Negative Urine Glucose (UA) Normal Urine Ketones Negative Urine Blood Negative Urine Nitrate Negative Urine Bilirubin Negative Urine Urobilinogen 2.0 H Ur Leukocyte Esterase Neg Urine WBC (Auto) 2 Urine RBC (Auto) < 1 Ur Squamous Epith Cells 1 Urine Osmolality 436 12/18/17 12/18/17 12/18/17 04:08 04:08 04:08 WBC 9.3 RBC 3.60 L Hgb 10.0 L Hct 31.9 L MCV 88.7 MCH 27.8 MCHC 31.4 L RDW 15.4 H Plt Count 88 L MPV 12.3 H Neut % (Auto) 79.5 H Lymph % (Auto) 12.8 L [place] % (Auto) 6.4 Eos % (Auto) 0.9 Baso % (Auto) 0.4 Neut # (Auto) 7.4 H Lymph # (Auto) 1.2 [place] # (Auto) 0.6 Eos # (Auto) 0.1 Baso # (Auto) 0.0 Differential Comment PT INR APTT pO2 VBG pH VBG pCO2 VBG HCO3 VBG Total CO2 VBG O2 Sat (Calc) VBG Base Excess VBG Potassium Glucose Lactate FiO2 Blood Gas Comments Crit Value Called To Crit Value Called By Crit Value Read Back Blood Gas Notified Time Sodium 166 H* Potassium 5.6 H Chloride 129 H Carbon Dioxide 18 L Anion Gap 24 H BUN 168 H* Creatinine 10.5 H* Est GFR ( Amer) 4 Est GFR (Non-Af Amer) 4 Random Glucose 143 H Serum Osmolality 403 H Calcium 10.0 Magnesium Total Bilirubin 0.6 AST 22 ALT 28 Alkaline Phosphatase 76 Troponin I Total Protein 6.4 Albumin 3.4 L Globulin 3.0 Albumin/Globulin Ratio 1.1 Lipase Cortisol AM Sample Venous Blood Potassium Urine Color Urine Clarity Urine pH Ur Specific [place] Urine Protein Urine Glucose (UA) Urine Ketones Urine Blood Urine Nitrate Urine Bilirubin Urine Urobilinogen Ur Leukocyte Esterase Urine WBC (Auto) Urine RBC (Auto) Ur Squamous Epith Cells Urine Osmolality 12/18/17 12/18/17 12/18/17 05:44 05:55 12:10 WBC RBC Hgb Hct MCV MCH MCHC RDW Plt Count MPV Neut % (Auto) Lymph % (Auto) [place] % (Auto) Eos % (Auto) Baso % (Auto) Neut # (Auto) Lymph # (Auto) [place] # (Auto) Eos # (Auto) Baso # (Auto) Differential Comment PT INR APTT pO2 44 VBG pH 7.37 VBG pCO2 26 L VBG HCO3 17.7 VBG Total CO2 15.8 L VBG O2 Sat (Calc) 86.6 H VBG Base Excess -8.6 L VBG Potassium 3.9 Glucose 88 Lactate 1.2 FiO2 Blood Gas Comments Sodium levels are high Crit Value Called To [facility] [facility] Crit Value Called By Danny ann Crit Value Read Back Y Blood Gas Notified Time 607 Sodium 162.0 H* 163 H* Potassium 5.3 H Chloride 135.0 H 136 H Carbon Dioxide 16 L Anion Gap 17 BUN 145 H* Creatinine 8.2 H* D Est GFR ( Amer) 6 Est GFR (Non-Af Amer) 5 Random Glucose 83 Serum Osmolality Calcium 8.2 L Magnesium Total Bilirubin 0.6 AST 23 ALT 31 Alkaline Phosphatase 62 Troponin I Total Protein 5.2 L Albumin 2.6 L D Globulin 2.6 Albumin/Globulin Ratio 1.0 Lipase Cortisol AM Sample 29.1 H Venous Blood Potassium 3.9 Urine Color Urine Clarity Urine pH Ur Specific [place] Urine Protein Urine Glucose (UA) Urine Ketones Urine Blood Urine Nitrate Urine Bilirubin Urine Urobilinogen Ur Leukocyte Esterase Urine WBC (Auto) Urine RBC (Auto) Ur Squamous Epith Cells Urine Osmolality
--- NOTE | 2017-12-18 21:32 | PQF ---
PROVIDER RESPONSE TEXT: CKD Stage 5, End Stage Renal Disease GFR=4/4 REVIEWER QUERY TEXT: Kidney Disease, Chronic CKD Stage Chronic Kidney Disease (CKD) is documented in the Medical Record. Please specify the disease stage ( includes probable or suspected) Such as: -- Chronic kidney disease Stage 1 -- Chronic kidney disease Stage 2 -- Chronic kidney disease Stage 3 -- Chronic kidney disease Stage 4 -- Chronic kidney disease Stage 5 -- Chronic kidney disease Stage 5, requiring dialysis -- End Stage Renal Disease -- Other, please specify Stages are defined by the National Kid[employer] Foundation as follows: CKD Stage I GFR >= 90 ml / min per 1.73 m2 and persistent albuminuria CKD Stage 2 GFR between 60 and 89 with persistent albuminuria CKD Stage 3 GFR between 30 and 59 CKD Stage 4 GFR between 15 and 29 CKD Stage 5 GFR between <15 or End Stage Renal Disease The patient's Clinical Indicators include: ?82 year old female presented for severe dehydration and abnormal lab values. On admission, pt's Na w as noted to be 166. Pt is lethargic but able to follow simple commands and awakens to verbal and pain ful stimuli?. GFR: 4/4 Please consider verify and document the stage by the National Kidney Foundation stages, bellow. Query created by: Rinku Lizarraga on 12/18/2017 6:11 PM PROVIDER RESPONSE TEXT: Hypovolemic Shock REVIEWER QUERY TEXT: Shock Type Shock is documented in the Medical Record. Please specify the type Such as: -- Cardiogenic -- Septic -- Hypovolemic -- Circulatory -- Hemorrhagic -- Traumatic -- Anaphylactic -- Other, please specify The patient's Clinical Indicators include: ?82 year old female presented for severe dehydration and abnormal lab values. On admission, pt's Na w as noted to be 166. Patient was receiving IV fluids but she continued to be hypotensive" Shock was documented in ICU progress note, would you mind to specify and document the shock as hypovo lemic shock, if agree. Query created by: Rinku Lizarraga on 12/18/2017 6:15 PM Electronically signed by: Yusef SMITH 12/18/2017 9:29 PM
[2017-12-19] MEDS: Sodium Chloride 0.45% 1,000 ML IV SCH ×6 (04:45→22:45)
[2017-12-19 08:35] LABS: BASO % 0.3 % (0.0-2.0); EOS # 0.2 K/uL (0.0-0.7); EOS % 1.9 % (0.0-4.0); HEMOGLOBIN 8.2 g/dL (11.0-16.0); LYMPH # 2.3 K/uL (1.0-4.3); LYMPH % 22.8 % (20.0-40.0); MEAN CELL VOLUME 87.9 fL (81.0-99.0); MEAN CORPUSCULAR HEMOGLOBIN 28.4 pg (27.0-31.0); MEAN CORPUSCULAR HGB CONC 32.3 g/dL (33.0-37.0); MEAN PLATELET VOLUME 11.7 fL (7.2-11.7); MONO # 0.8 K/uL (0.0-0.8); MONO % 7.5 % (0.0-10.0); NEUT # 6.9 K/uL (1.8-7.0); NEUT % 67.5 % (50.0-75.0); NRBC % 0.1 % (0.0-2.0); RBC 2.89 Mil/uL (3.80-5.20); RED CELL DISTRIBUTION WIDTH 15.8 % (11.5-14.5); WHITE BLOOD COUNT 10.3 K/uL (4.8-10.8)
[2017-12-19 08:41] LABS: PROTHROMBIN TIME 11.3 SECONDS (9.7-12.2)
--- NOTE | 2017-12-19 09:48 | CP.PCM.PN ---
Subjective - Date & Time of Evaluation Date of Evaluation: 12/19/17 Time of Evaluation: 09:46 - Subjective Subjective: more awake remains on IV hypotonic fluid rehydration same confusional state UO increased no new labs today Objective - Vital Signs/Intake and Output Vital Signs (last 24 hours): Temp Pulse Resp BP Pulse Ox 99.0 F 104 H 20 108/73 97 12/19/17 07:46 12/19/17 07:46 12/19/17 07:46 12/19/17 07:46 12/19/17 07:46 Intake and Output: 12/19/17 12/19/17 06:59 18:59 Intake Total 1625 Output Total 1100 Balance 525 - Medications Medications: Current Medications Divalproex Sodium (Depakote Dr) 250 mg PO BID [facility] Last Admin: 12/18/17 17:03 Dose: Not Given Sodium Chloride (Sodium Chloride 0.45%) 1,000 mls @ 125 mls/hr IV .Q8H [facility] Last Admin: 12/19/17 06:52 Dose: 125 mls/hr - Labs Labs: 12/19/17 08:28 12/18/17 12:10 PT 11.3 SECONDS (9.7-12.2) 12/19/17 08:28 INR 1.0 12/19/17 08:28 APTT 25 SECONDS (21-34) 12/19/17 08:28 - Constitutional Appears: No Acute Distress, Confused, Chronically Ill - Head Exam Head Exam: ATRAUMATIC, NORMAL INSPECTION - Eye Exam Eye Exam: EOMI, Normal appearance - Neck Exam Neck Exam: Normal Inspection. absent: Tenderness - Respiratory Exam Respiratory Exam: Clear to Ausculation Bilateral, NORMAL BREATHING PATTERN - Cardiovascular Exam Cardiovascular Exam: REGULAR RHYTHM, +S1 - GI/Abdominal Exam GI & Abdominal Exam: Soft. absent: Tenderness - Extremities Exam Extremities Exam: Normal Inspection. absent: Tenderness - Neurological Exam Neurological Exam: Altered - Skin Skin Exam: Dry, Warm Assessment and Plan (1) Acute kidney failure Status: Acute (2) Dehydration Status: Acute - Assessment and Plan (Free Text) Plan: IV 1/2NS fluids follow up chemistries
[2017-12-19 10:47] LABS: ALB/GLOB RATIO 0.9 (1.0-2.1); ALBUMIN 2.8 g/dL (3.5-5.0); CALCIUM 8.8 mg/dl (8.6-10.4)
[2017-12-19] MEDS: Divalproex 250 mg DR Tab PO SCH ×2 (11:12→18:52)
--- NOTE | 2017-12-19 11:32 | CP.PCM.PN ---
Subjective - Date & Time of Evaluation Date of Evaluation: 12/19/17 Time of Evaluation: 11:30 - Subjective Subjective: PT MORE AWAKE., NO DISTRESS. ROS; UNOBTAINABLE. Objective - Vital Signs/Intake and Output Vital Signs (last 24 hours): Temp Pulse Resp BP Pulse Ox 99.0 F 104 H 20 108/73 97 12/19/17 07:46 12/19/17 07:46 12/19/17 07:46 12/19/17 07:46 12/19/17 07:46 Intake and Output: 12/19/17 12/19/17 06:59 18:59 Intake Total 1625 Output Total 1100 Balance 525 - Medications Medications: Current Medications Divalproex Sodium (Depakote Dr) 250 mg PO BID [facility] Last Admin: 12/19/17 11:12 Dose: Not Given Sodium Chloride (Sodium Chloride 0.45%) 1,000 mls @ 125 mls/hr IV .Q8H [facility] Last Admin: 12/19/17 06:52 Dose: 125 mls/hr - Labs Labs: 12/19/17 08:28 12/19/17 08:28 PT 11.3 SECONDS (9.7-12.2) 12/19/17 08:28 INR 1.0 12/19/17 08:28 APTT 25 SECONDS (21-34) 12/19/17 08:28 - Constitutional Appears: No Acute Distress, Chronically Ill - Head Exam Head Exam: ATRAUMATIC, NORMOCEPHALIC - Eye Exam Eye Exam: EOMI, Normal appearance - ENT Exam ENT Exam: Mucous Membranes Moist - Neck Exam Neck Exam: Normal Inspection - Respiratory Exam Respiratory Exam: Decreased Breath Sounds - Cardiovascular Exam Cardiovascular Exam: RRR, +S1, +S2 - GI/Abdominal Exam GI & Abdominal Exam: Soft. absent: Tenderness - Rectal Exam Rectal Exam: Deferred - Extremities Exam Extremities Exam: Pedal Edema - Back Exam Back Exam: absent: CVA tenderness (L), CVA tenderness (R) - Neurological Exam Neurological Exam: Awake. absent: Oriented x3 - Skin Skin Exam: absent: Rash Assessment and Plan (1) Acute kidney failure Status: Acute (2) COPD exacerbation Status: Acute (3) Dementia Status: Acute (4) Dehydration Status: Acute (5) Sepsis Status: Acute (6) Hypertension Status: Acute - Assessment and Plan (Free Text) Assessment: RESP STATUS UNLABORED., CONT PULM TOILET, NEB BD., ASP PRECAUTIONS., MONITOR O2 SAT. CXR REVIEWED., RENAL FN IMPROVING ON IVF. PROG POOR,. DNR/DNI NOTED. DISCUSSED WITH STAFF AT LENGTH AND RENAL.
--- NOTE | 2017-12-19 12:17 | CARD ---
APPROVED REPORT Date of service: 12/17/2017 EKG Measurement Heart [id number] <Conclusion> Sinus tachycardia Low voltage QRS Borderline ECG
--- NOTE | 2017-12-19 13:38 | CP.PCM.PN ---
Subjective - Date & Time of Evaluation Date of Evaluation: 12/19/17 Time of Evaluation: 07:45 - Subjective Subjective: clinically same Objective - Vital Signs/Intake and Output Vital Signs (last 24 hours): Temp Pulse Resp BP Pulse Ox 99.0 F 104 H 20 108/73 97 12/19/17 07:46 12/19/17 07:46 12/19/17 07:46 12/19/17 07:46 12/19/17 07:46 Intake and Output: 12/19/17 12/19/17 06:59 18:59 Intake Total 1625 Output Total 1100 Balance 525 - Medications Medications: Current Medications Divalproex Sodium (Depakote Dr) 250 mg PO BID [facility] Last Admin: 12/19/17 11:12 Dose: Not Given Sodium Chloride (Sodium Chloride 0.45%) 1,000 mls @ 125 mls/hr IV .Q8H [facility] Last Admin: 12/19/17 06:52 Dose: 125 mls/hr - Labs Labs: 12/19/17 08:28 12/19/17 08:28 PT 11.3 SECONDS (9.7-12.2) 12/19/17 08:28 INR 1.0 12/19/17 08:28 APTT 25 SECONDS (21-34) 12/19/17 08:28 - Constitutional Appears: Well - Head Exam Head Exam: ATRAUMATIC, NORMAL INSPECTION, NORMOCEPHALIC - Eye Exam Eye Exam: EOMI, Normal appearance, PERRL Pupil Exam: NORMAL ACCOMODATION, PERRL - ENT Exam ENT Exam: Mucous Membranes Moist, Normal Exam - Neck Exam Neck Exam: Full ROM, Normal Inspection. absent: Lymphadenopathy - Respiratory Exam Respiratory Exam: Decreased Breath Sounds - Cardiovascular Exam Cardiovascular Exam: REGULAR RHYTHM, +S1, +S2 - GI/Abdominal Exam GI & Abdominal Exam: Soft, Diminished Bowel Sounds - Rectal Exam Rectal Exam: Deferred
--- NOTE | 2017-12-19 18:56 | CP.PCM.PN ---
Subjective - Date & Time of Evaluation Date of Evaluation: 12/19/17 Time of Evaluation: 08:00 - Subjective Subjective: lethargic Objective - Vital Signs/Intake and Output Vital Signs (last 24 hours): Temp Pulse Resp BP Pulse Ox 99.0 F 104 H 20 108/73 97 12/19/17 07:46 12/19/17 07:46 12/19/17 07:46 12/19/17 07:46 12/19/17 07:46 Intake and Output: 12/19/17 12/19/17 06:59 18:59 Intake Total 1625 Output Total 1100 800 Balance 525 -800 - Medications Medications: Current Medications Divalproex Sodium (Depakote Dr) 250 mg PO BID [facility] Last Admin: 12/19/17 18:52 Dose: Not Given Sodium Chloride (Sodium Chloride 0.45%) 1,000 mls @ 125 mls/hr IV .Q8H [facility] Last Admin: 12/19/17 15:01 Dose: 125 mls/hr Morphine Sulfate (Morphine) 2 mg IVP Q4 PRN PRN Reason: Pain, severe (8-10) - Labs Labs: 12/19/17 08:28 12/19/17 08:28 PT 11.3 SECONDS (9.7-12.2) 12/19/17 08:28 INR 1.0 12/19/17 08:28 APTT 25 SECONDS (21-34) 12/19/17 08:28 - Constitutional Appears: Non-toxic, Confused, Cachectic, Chronically Ill - Head Exam Head Exam: NORMOCEPHALIC - Eye Exam Eye Exam: absent: Scleral icterus - ENT Exam ENT Exam: Mucous Membranes Dry - Neck Exam Neck Exam: absent: Lymphadenopathy - Respiratory Exam Respiratory Exam: Decreased Breath Sounds - Cardiovascular Exam Cardiovascular Exam: REGULAR RHYTHM - GI/Abdominal Exam GI & Abdominal Exam: Distended Assessment and Plan (1) Acute kidney failure Status: Acute (2) COPD exacerbation Status: Acute (3) Dehydration Status: Acute (4) Dementia Status: Acute (5) Hyperkalemia Status: Acute (6) Hypernatremia Status: Acute (7) Hypertension Status: Acute (8) Sepsis Status: Acute - Assessment and Plan (Free Text) Assessment: cultures all neg iv antibiotics d/c'd by ICU team will sign off
[2017-12-19 22:11] VITALS: RESP 20
[2017-12-20] MEDS: Sodium Chloride 0.45% 1,000 ML IV SCH ×2 (04:45→07:03)
[2017-12-20] MEDS: Divalproex 250 mg DR Tab PO SCH ×2 (10:42→18:38)
[2017-12-20 11:39] LABS: ALB/GLOB RATIO 0.9 (1.0-2.1); ALBUMIN 2.7 g/dL (3.5-5.0); CALCIUM 8.7 mg/dl (8.6-10.4)
--- NOTE | 2017-12-20 12:05 | CP.PCM.PN ---
Subjective - Date & Time of Evaluation Date of Evaluation: 12/20/17 Time of Evaluation: 12:01 - Subjective Subjective: PT MORE AWAKE., CONFUSED., NO DISTRESS. ROS; UNOBTAINABLE. Objective - Vital Signs/Intake and Output Vital Signs (last 24 hours): Temp Pulse Resp BP Pulse Ox 98.7 F 96 H 20 111/67 95 12/20/17 07:23 12/20/17 07:23 12/20/17 07:23 12/20/17 07:23 12/20/17 07:23 Intake and Output: 12/20/17 12/20/17 06:59 18:59 Intake Total 500 1500 Output Total 650 500 Balance -150 1000 - Medications Medications: Current Medications Divalproex Sodium (Depakote Dr) 250 mg PO BID [facility] Last Admin: 12/20/17 10:42 Dose: Not Given Sodium Chloride (Sodium Chloride 0.45%) 1,000 mls @ 125 mls/hr IV .Q8H [facility] Last Admin: 12/20/17 07:03 Dose: 125 mls/hr Morphine Sulfate (Morphine) 2 mg IVP Q4 PRN PRN Reason: Pain, severe (8-10) - Labs Labs: 12/19/17 08:28 12/20/17 11:12 PT 11.3 SECONDS (9.7-12.2) 12/19/17 08:28 INR 1.0 12/19/17 08:28 APTT 25 SECONDS (21-34) 12/19/17 08:28 - Constitutional Appears: No Acute Distress, Chronically Ill - Head Exam Head Exam: ATRAUMATIC, NORMOCEPHALIC - Eye Exam Eye Exam: Normal appearance - ENT Exam ENT Exam: Mucous Membranes Dry - Neck Exam Neck Exam: Normal Inspection - Respiratory Exam Respiratory Exam: Decreased Breath Sounds. absent: Accessory Muscle Use, Respiratory Distress - Cardiovascular Exam Cardiovascular Exam: RRR, +S1, +S2 - GI/Abdominal Exam GI & Abdominal Exam: Soft. absent: Tenderness - Rectal Exam Rectal Exam: Deferred - Extremities Exam Extremities Exam: absent: Pedal Edema - Neurological Exam Neurological Exam: Awake Additional comments: CONFUSED. - Skin Skin Exam: absent: Rash Assessment and Plan (1) Acute kidney failure Status: Acute (2) COPD exacerbation Status: Acute (3) Dementia Status: Acute (4) Dehydration Status: Acute (5) Sepsis Status: Acute (6) Hypertension Status: Acute - Assessment and Plan (Free Text) Assessment: RESP STATUS UNLABORED., CONT PULM TOILET., AFEBRILE OFF AB. PREMA BETTER WITH IVF. CXR REVIEWED. DNR/ DNI . PROG POOR., DISCUSSED WITH STAFF.
--- NOTE | 2017-12-20 13:10 | CP.PCM.PN ---
Subjective - Date & Time of Evaluation Date of Evaluation: 12/20/17 Time of Evaluation: 13:10 - Subjective Subjective: plan for comfort care noted no labs will sign off please reconsult if needed Objective - Vital Signs/Intake and Output Vital Signs (last 24 hours): Temp Pulse Resp BP Pulse Ox 98.7 F 96 H 20 111/67 95 12/20/17 07:23 12/20/17 07:23 12/20/17 07:23 12/20/17 07:23 12/20/17 07:23 Intake and Output: 12/20/17 12/20/17 06:59 18:59 Intake Total 500 1500 Output Total 650 500 Balance -150 1000 - Medications Medications: Current Medications Divalproex Sodium (Depakote Dr) 250 mg PO BID [facility] Last Admin: 12/20/17 10:42 Dose: Not Given Sodium Chloride (Sodium Chloride 0.45%) 1,000 mls @ 125 mls/hr IV .Q8H [facility] Last Admin: 12/20/17 07:03 Dose: 125 mls/hr Morphine Sulfate (Morphine) 2 mg IVP Q4 PRN PRN Reason: Pain, severe (8-10) - Labs Labs: 12/19/17 08:28 12/20/17 11:12 PT 11.3 SECONDS (9.7-12.2) 12/19/17 08:28 INR 1.0 12/19/17 08:28 APTT 25 SECONDS (21-34) 12/19/17 08:28
--- NOTE | 2017-12-20 20:29 | CP.PCM.PN ---
Subjective - Date & Time of Evaluation Date of Evaluation: 12/20/17 Time of Evaluation: 08:10 Objective - Vital Signs/Intake and Output Vital Signs (last 24 hours): Temp Pulse Resp BP Pulse Ox 98.3 F 86 20 146/61 100 12/20/17 16:00 12/20/17 16:00 12/20/17 16:00 12/20/17 16:00 12/20/17 16:00 Intake and Output: 12/20/17 12/21/17 18:59 06:59 Intake Total 2500 Output Total 1100 Balance 1400 - Medications Medications: Current Medications Divalproex Sodium (Depakote Dr) 250 mg PO BID [facility] Last Admin: 12/20/17 18:38 Dose: Not Given Sodium Chloride (Sodium Chloride 0.45%) 1,000 mls @ 125 mls/hr IV .Q8H [facility] Last Admin: 12/20/17 07:03 Dose: 125 mls/hr Morphine Sulfate (Morphine) 2 mg IVP Q4 PRN PRN Reason: Pain, severe (8-10) - Labs Labs: 12/19/17 08:28 12/20/17 11:12 PT 11.3 SECONDS (9.7-12.2) 12/19/17 08:28 INR 1.0 12/19/17 08:28 APTT 25 SECONDS (21-34) 12/19/17 08:28
[2017-12-20 23:31] VITALS: PULSE 97; O2SAT 98
[2017-12-21] MEDS: Sodium Chloride 0.45% 1,000 ML IV SCH ×3 (04:30→13:00)
[2017-12-21 08:07] VITALS: BP 132/70; TEMP 98.1
[2017-12-21] MEDS: Divalproex 250 mg DR Tab PO SCH (10:15)
[2017-12-21 12:04] LABS: ALB/GLOB RATIO 0.9 (1.0-2.1); ALBUMIN 2.6 g/dL (3.5-5.0); CALCIUM 8.6 mg/dl (8.6-10.4)
--- NOTE | 2017-12-21 14:55 | CP.PCM.PN ---
Subjective - Date & Time of Evaluation Date of Evaluation: 12/21/17 Time of Evaluation: 07:15 - Subjective Subjective: clinically same Objective - Vital Signs/Intake and Output Vital Signs (last 24 hours): Temp Pulse Resp BP Pulse Ox 98.1 F 97 H 20 132/70 98 12/21/17 07:00 12/21/17 07:00 12/21/17 07:00 12/21/17 07:00 12/21/17 07:00 Intake and Output: 12/21/17 12/21/17 06:59 18:59 Intake Total 1000 Output Total 1200 500 Balance -1200 500 - Medications Medications: Current Medications Divalproex Sodium (Depakote Dr) 250 mg PO BID [facility] Last Admin: 12/21/17 10:15 Dose: 250 mg Morphine Sulfate (Morphine) 2 mg IVP Q4 PRN PRN Reason: Pain, severe (8-10) - Labs Labs: 12/19/17 08:28 12/21/17 11:31 PT 11.3 SECONDS (9.7-12.2) 12/19/17 08:28 INR 1.0 12/19/17 08:28 APTT 25 SECONDS (21-34) 12/19/17 08:28 - Constitutional Appears: Well - Head Exam Head Exam: ATRAUMATIC, NORMAL INSPECTION, NORMOCEPHALIC - Eye Exam Eye Exam: EOMI, Normal appearance, PERRL Pupil Exam: NORMAL ACCOMODATION, PERRL - ENT Exam ENT Exam: Mucous Membranes Moist, Normal Exam - Respiratory Exam Respiratory Exam: Decreased Breath Sounds - Cardiovascular Exam Cardiovascular Exam: REGULAR RHYTHM, +S1, +S2 - GI/Abdominal Exam GI & Abdominal Exam: Soft, Diminished Bowel Sounds - Rectal Exam Rectal Exam: Deferred
== END 2017-12-21 16:45 | DRG 871 ==
LOC: C.ER 20:38 → C.9E 23:00 → C.6T 23:47 → C.9I 12-18 06:08 → C.3T 12-18 22:42
PROVIDERS: ADMIT Internal Medicine Nephrology; ATTEND Internal Medicine Nephrology
DX: A41.9 Sepsis, unspecified organism (principal); N18.6 End stage renal disease; R57.1 Hypovolemic shock; E87.0 Hyperosmolality and hypernatremia; I12.0 Hypertensive chronic kidney disease with stage 5 chronic kidney disease or end stage renal disease; J44.1 Chronic obstructive pulmonary disease with (acute) exacerbation; N17.9 Acute kidney failure, unspecified; E78.5 Hyperlipidemia, unspecified; E87.5 Hyperkalemia; G30.9 Alzheimer's disease, unspecified; F02.80 Dementia in other diseases classified elsewhere, unspecified severity, without behavioral disturbance, psychotic disturbance, mood disturbance, and anxiety; R62.7 Adult failure to thrive; Z51.5 Encounter for palliative care; Z66 Do not resuscitate; Z87.891 Personal history of nicotine dependence; Z99.2 Dependence on renal dialysis; M10.9 Gout, unspecified